=== PATIENT | male | born 1945 | race Caucasian/White ===

== ENCOUNTER → 2017-08-29 12:49 | Outpatient (CLI) | payer MEDICARE, SELFPAY ==
--- NOTE | 2017-08-30 10:58 | PFT ---
INTRODUCTION: The patient is a 71-year-old male currently under the care of Dr. Espinoza that presents for pulmonary function testing secondary to a diagnosis of COPD. Respiratory therapy reports good patient effort. Bronchodilators were used during testing. INTERPRETATION: Forced expiration spirometry demonstrates the presence of a mild large airways obstructive ventilatory defect. There was no significant response to aerosolized bronchodilators, based upon strict ATS criteria. Spirograms are of good quality and do not plateau indicating slow emptying of the lungs. Body plethysmography was performed and reveals a trend towards hyperinflation and air-trapping. Diffusing capacity by single breath CO is mildly reduced at 65% of predicted. When compared to previous pulmonary function studies dated July 2016, there has been a 20% improvement in the patient's DLCO. IMPRESSION: These pulmonary function studies demonstrate the presence of an irreversible mild large airways obstructive ventilatory defect with a trend towards hyperinflation and air-trapping and mild reduction in diffusing capacity.
--- NOTE | 2017-08-30 11:01 | PFT_ITS ---
INTRODUCTION: The patient is a 71-year-old male currently under the care of Dr. Espinoza that presents for pulmonary function testing secondary to a diagnosis of COPD. Respiratory therapy reports good patient effort. Bronchodilators were used during testing. INTERPRETATION: Forced expiration spirometry demonstrates the presence of a mild large airways obstructive ventilatory defect. There was no significant response to aerosolized bronchodilators, based upon strict ATS criteria. Spirograms are of good quality and do not plateau indicating slow emptying of the lungs. Body plethysmography was performed and reveals a trend towards hyperinflation and air -trapping. Diffusing capacity by single breath CO is mildly reduced at 65% of predicted. When compared to previous pulmonary function studies dated July 2016 , there has been a 20% improvement in the patient's DLCO. IMPRESSION: These pulmonary function studies demonstrate the presence of an irreversible mild large airways obstructive ventilatory defect with a trend towards hyperinflation and air-trapping and mild reduction in diffusing capacity.
== END ==
PROVIDERS: Family Provider Family Medicine; PCP Family Medicine; Visit Provider Internal Medicine Critical Care Medicine
DX: J44.9 Chronic obstructive pulmonary disease, unspecified (principal)
CPT/HCPCS: 94060; 94726; 94729

== ENCOUNTER → 2017-09-01 12:16 | Outpatient (CLI) | payer MEDICARE, SELFPAY ==
[2017-09-01 13:15] VITALS: PULSE 101; PULSE 62; PULSE 66; PULSE 85; PULSE 86; PULSE 88; PULSE 89; PULSE 96; O2SAT 87; O2SAT 90; O2SAT 93; O2SAT 94; O2SAT 96; O2SAT 97
--- NOTE | 2017-09-01 13:18 | CPS ---
After test I explained face to face encounter to patient. Patient refused face to face. Risks of not wearing oxygen with a low spO2 explained to patient. Patient still refused. Patient stated he has an appointment with Tracie at [facility] on and will discuss it further with her then and oxygen is not necessary at this time. Patient checked on room air while sitting, 96%, prior to leaving.
--- NOTE | 2017-09-02 09:36 | PCM.PSN.6M ---
PSN 6 Minute Walk Test - 6 Minute Walk Test 6 Minute Walk Test: 6 Minute Walk Test PSN:6-Minute Walk Test Start: 09/01/17 13:15 Freq: Status: Active Protocol: RESP.6MINW Document 09/01/17 13:15 SMB (Rec: 09/01/17 13:24 SMB [id number]) 6 Minute Walk Test Date Performed 09/01/17 Time Performed 12:22 Height 5 ft 7 in Weight: 170 lb Weight in Pounds 170.[address]: Tony Espinoza Assistive device used: None Pre-test Oxygen Delivery Method Room Air Pulse Ox (%) 96 Pulse Rate (60-100 beats/min) 62 1st minute Oxygen Delivery Method Room Air Pulse Ox (%) 90 Pulse Rate (60-100 beats/min) 101 H 2nd minute Oxygen Delivery Method Room Air Pulse Ox (%) 87 Pulse Rate (60-100 beats/min) 88 3rd minute Oxygen Flow Rate (L/min) (L/min) 2 Oxygen Delivery Method Nasal Cannula Pulse Ox (%) 94 Pulse Rate (60-100 beats/min) 66 4th minute Oxygen Flow Rate (L/min) (L/min) 2 Oxygen Delivery Method Nasal Cannula Pulse Ox (%) 93 Pulse Rate (60-100 beats/min) 86 5th minute Oxygen Flow Rate (L/min) (L/min) 2 Oxygen Delivery Method Nasal Cannula Pulse Ox (%) 94 Pulse Rate (60-100 beats/min) 85 6th minute Oxygen Flow Rate (L/min) (L/min) 2 Oxygen Delivery Method Nasal Cannula Pulse Ox (%) 93 Pulse Rate (60-100 beats/min) 89 Post-test Oxygen Flow Rate (L/min) (L/min) 2 Oxygen Delivery Method Nasal Cannula Pulse Ox (%) 97 Pulse Rate (60-100 beats/min) 96 Dyspnea Hernan Scale (0-10) 0 Exertion Hernan Scale (6-20) 12 Full Laps Walked 17 Partial Lap, Number of Tiles Walked 14 Total Distance Walked (ft) 1017 09/01/17 13:18 Cardiopulmonary Services by Rosemary Fink After test I explained face to face encounter to patient. Patient refused face to face. Risks of not wearing oxygen with a low spO2 explained to patient. Patient still refused. Patient stated he has an appointment with Tracie at [facility] on and will discuss it further with her then and oxygen is not necessary at this time. Patient checked on room air while sitting, 96%, prior to leaving. Initialized on 09/01/17 13:18 - END OF NOTE - Interpretation Interpretation: The patient ambulated 1017 feet over the course of 6 minutes beginning on room air without assistive devices or breaks. Pretesting oxygen saturation was noted to be 96% on room air. With ambulation, the meche oxygen saturation was 87% at minute 2 of testing. Following the application of 2 L/min supplemental oxygen by nasal cannula, the patient was able to complete the remainder of the test while maintaining oxygen saturations at or above 88%. This testing represents significant exertional oxygen desaturation. - Recommendations Recommendations: 2 L/min of supplemental oxygen should be utilized with exertion. Of note, the patient did refuse a [id number] encounter following the completion of testing and subsequently refused to be set up for supplemental oxygen.
--- NOTE | 2017-09-02 09:39 | WT_ITS ---
PSN 6 Minute Walk Test - 6 Minute Walk Test 6 Minute Walk Test: 6 Minute Walk Test PSN:6-Minute Walk Test Start: 09/01/17 13: 15 Freq: Status: Active Protocol: RESP.6MINW Document 09/01/17 13:15 SMB (Rec: 09/01/17 13:24 SMB [id number]) 6 Minute Walk Test Date Performed 09/01/17 Time Performed 12:22 Height 5 ft 7 in Weight: 170 lb Weight in Pounds 170.[address]: Tony Espinoza Assistive device used: None Pre-test Oxygen Delivery Method Room Air Pulse Ox (%) 96 Pulse Rate (60-100 beats/min) 62 1st minute Oxygen Delivery Method Room Air Pulse Ox (%) 90 Pulse Rate (60-100 beats/min) 101 H 2nd minute Oxygen Delivery Method Room Air Pulse Ox (%) 87 Pulse Rate (60-100 beats/min) 88 3rd minute Oxygen Flow Rate (L/min) (L/min) 2 Oxygen Delivery Method Nasal Cannula Pulse Ox (%) 94 Pulse Rate (60-100 beats/min) 66 4th minute Oxygen Flow Rate (L/min) (L/min) 2 Oxygen Delivery Method Nasal Cannula Pulse Ox (%) 93 Pulse Rate (60-100 beats/min) 86 5th minute Oxygen Flow Rate (L/min) (L/min) 2 Oxygen Delivery Method Nasal Cannula Pulse Ox (%) 94 Pulse Rate (60-100 beats/min) 85 6th minute Oxygen Flow Rate (L/min) (L/min) 2 Oxygen Delivery Method Nasal Cannula Pulse Ox (%) 93 Pulse Rate (60-100 beats/min) 89 Post-test Oxygen Flow Rate (L/min) (L/min) 2 Oxygen Delivery Method Nasal Cannula Pulse Ox (%) 97 Pulse Rate (60-100 beats/min) 96 Dyspnea Hernan Scale (0-10) 0 Exertion Hernan Scale (6-20) 12 Full Laps Walked 17 Partial Lap, Number of Tiles Walked 14 Total Distance Walked (ft) 1017 09/01/17 13:18 Cardiopulmonary Services by Rosemary Fink After test I explained face to face encounter to patient. Patient refused face to face. Risks of not wearing oxygen with a low spO2 explained to patient. Patient still refused. Patient stated he has an appointment with Tracie at [facility] on and will discuss it further with her then and oxygen is not necessary at this time. Patient checked on room air while sitting, 96%, prior to leaving. Initialized on 09/01/17 13:18 - END OF NOTE - Interpretation Interpretation: The patient ambulated 1017 feet over the course of 6 minutes beginning on room air without assistive devices or breaks. Pretesting oxygen saturation was noted to be 96% on room air. With ambulation, the meche oxygen saturation was 87% at minute 2 of testing. Following the application of 2 L/min supplemental oxygen by nasal cannula, the patient was able to complete the remainder of the test while maintaining oxygen saturations at or above 88%. This testing represents significant exertional oxygen desaturation. - Recommendations Recommendations: 2 L/min of supplemental oxygen should be utilized with exertion. Of note, the patient did refuse a [id number] encounter following the completion of testing and subsequently refused to be set up for supplemental oxygen.
== END ==
PROVIDERS: Family Provider Family Medicine; PCP Family Medicine; Visit Provider Internal Medicine Critical Care Medicine
DX: J44.9 Chronic obstructive pulmonary disease, unspecified (principal)
CPT/HCPCS: 94618

== ENCOUNTER → 2018-01-18 13:57 | Outpatient (CLI) | payer MEDICARE, SELFPAY ==
--- NOTE | 2018-01-18 14:07 | RAD_ITS ---
STUDY: X-RAY CHEST REASON FOR EXAM: Male, 72 years old. Pulmonary hypertension. TECHNIQUE: PA and lateral views of the chest. COMPARISON: CT of the chest, July 22, 2016. FINDINGS: The lungs are hyperexpanded. There is no focal mass or infiltrate. There is no demonstrated pleural abnormality. Normal size heart. Normal mediastinum and landy. Normal visualized pulmonary arteries. Normal visualized aortic arch and descending thoracic aorta. Normal visualized thoracic spine. Normal visualized ribs, clavicles, and shoulders. There is no demonstrated abnormality of the visualized soft tissue structures of the upper abdomen. RAD/Chest PA and Lateral IMPRESSION: Hyperexpanded lungs without focal mass or major interval change. Electronically Signed: Claudio Kraft DO at 23:25 EST Tel [phone], Service support ,
[2018-01-18 15:01] LABS: Anion Gap 3 (5-15); BUN 11 mg/dL (7-18); BUN/Creat Ratio 11.2 RATIO (10-20); Calcium,Total 8.6 mg/dL (8.5-10.1); Chloride 107 mmol/L (98-107); Creatinine, Serum 0.98 mg/dL (0.70-1.30); EST Glomerular Filtration Rate 80 mL/min (>60); Est Glom Filt Rate - Afr Amer 97 mL/min (>60); Glucose 58 mg/dL (74-106); Potassium 3.8 mmol/L (3.5-5.1); Sodium Level 142 mmol/L (136-145)
[2018-01-18 15:07] LABS: BNP,B-Type NATRIURETIC PEPTIDE 6.3 pg/mL (0-100)
== END ==
PROVIDERS: Family Provider Family Medicine; PCP Family Medicine; Referring Provider Nurse Practitioner Acute Care; Visit Provider Nurse Practitioner Acute Care
DX: R06.02 Shortness of breath (principal)
CPT/HCPCS: 36415; 71046; 80048; 83880

== ENCOUNTER → 2020-03-18 09:33 | Outpatient (CLI) | payer MEDICARE, SELFPAY ==
[2019-09-26 05:48] VITALS: BMI 27.9
--- NOTE | 2020-03-18 16:05 | PFTCOMP ---
COMPLETE PULMONARY FUNCTION TEST INTERPRETATION Brief HPI: Patient is a 74 year old male, currently under the care of myself, who presents to [facility] for complete pulmonary function tests secondary to diagnosis of COPD. Respiratory therapist reports good effort and reproducible results. Interpretation: Forced expiration spirometry shows a mild large airways obstructive ventilatory defect with an FEV1 of 83% predicted. There is no significant bronchodilator response by strict ATS criteria. Spirograms are of good quality and plateau slowly, indicating slowly emptying areas of the lungs. The respiratory flow volume loop shows decreased expiratory flow rates at all lung volumes consistent with airway obstruction. Lung volumes by body plethysmography show an elevated total lung capacity at 7.54 L, 121% predicted. All other lung volumes are increased symmetrically. Diffusion capacity by carbon monoxide is decreased at 55% predicted. The airway resistance is elevated. Compared to previous pulmonary function tests from 08/29/2017, there is been a reduction in DLCO by 16%. Impression: Irreversible mild large airways obstructive ventilatory defect resulting in air trapping, with a disproportionate reduction diffusion capacity and some progression compared to the previous study.
== END ==
PROVIDERS: PCP Family Medicine; Referring Provider Internal Medicine Critical Care Medicine; Visit Provider Internal Medicine Critical Care Medicine
DX: J44.9 Chronic obstructive pulmonary disease, unspecified (principal)
CPT/HCPCS: 94060; 94726; 94729

== ENCOUNTER → 2020-07-17 09:16 | Outpatient (CLI) | payer OTHER, SELFPAY ==
--- NOTE | 2020-07-17 09:27 | PR.HP_ITS ---
History of Present Illness Arrival date:: 07/17/20 Arrival time:: 09:20 Date of Referral:: 07/11/20 Date of Evaluation: 07/17/20 Referring Physician: [facility] Issa Dickey Primary Diagnosis: COPD GOLD Classification II, PULM HTN mMRC Breathless Scale: When is the patient short of breath? Y/N Grade: Description of Breathlessness: 0 I only get breathless with strenuous exercise. 1 I get short of breath when hurrying on level ground or walking up a slight hill. 2 On level ground, I walk slower than people of the same age because of breathless, or have to stop for breath when walking at my own pace. 3 I stop for breath after walking 100 yards or after a few minutes on level ground. 4 I am too breathless to leave the house or I am breathless when dressing. Respiratory Problems: Yes: Fatigue, Wheezing, Able to Speak in Full Sentences, Dyspnea with Activity, Cough with Secretions No: Limited Range of Motion, Dyspnea at Rest, Dyspnea Lying Down Flat - Secretions Cough:: Yes A.T.C.: Yes Hx of Sleep Apnea: Yes Do you snore loudly (louder than talking or can be heard through closed doors)?: Yes Do you often feel tired/ fatigued/ sleepy during daytime?: Yes Has anyone observed you stop breathing during sleep?: No History of Hypertension (for STOP score): Yes - Pt has previous history of KENY with CPAP. STOP Results: Positive Home Medications: Home Medications folic acid 1 mg tablet 1 mg PO QDAY 04/01/17 glucosamine sulfate-chondroitin sulfate A 500 mg-250 mg capsule cap PO 04/01/17 hydroxychloroquine 200 mg tablet 200 mg PO BID tab 04/01/17 cholecalciferol (vitamin D3) 50 mcg (2,000 unit) capsule 2,000 unit PO QDAY cap 10/11/17 adalimumab 10 mg/0.2 mL subcutaneous syringe kit See Rx Instructions SC .COMPLEX 03/24/20 albuterol sulfate 2 puff INHALATION Q6H PRN 07/17/20 tiotropium bromide [Spiriva Respimat] 2 puff INHALATION DAILY 07/17/20 valacyclovir 1,000 mg PO Q12H 07/17/20 Allergies/Adverse Reactions: Allergies No Known Allergies Allergy (Unverified 01/11/21 09:36) Medical Utilization Do you use a peak flow meter at home?: No Do you use a spacer device with your inhalers?: Yes Number of hospital visits in the last year?: 0 Do you see your physician on a regular schedule?: Yes How often?: 3 months and as needed Advanced Directives - Advanced Directives Power of Asset Protection Assistant: Yes Living Will: Yes Advance Directives Information Provided: No Advance Directives on File: No DNR Order?:: No - MOLST See MOLST form: No Past Medical History - Covid-19 Screening Fever: No - Patient has had the COVID-19 vaccine ([employer]) Unexplained muscle aches: No Current respiratory symptoms: Yes - Hx COPD Upper respiratory infections symptoms: Yes - Hx of COPD and exacerbations Gastro-intestinal symptoms: No Cni-Hlgy-Oricox symptoms: No Has tested positive for COVID-19 in last 30 days: No Had contact w/person w/symptoms or Covid-19 (+) last 14 days: No Has High Risk Exposures ID'd by Health dept/Inf Control team: No 65 years or older:: Yes Lives in Assisted Living facility:: No Has a chronic lung disease or moderate to severe asthma:: Yes Has a serious heart condition:: No Immunocompromised:: No Severely obese (Body Mass Index of 40 or higher):: No Diabetic:: No Has chronic kidney disease undergoing dialysis:: No Has liver disease:: Yes Medical History: Past Medical History (Last Updated 07/17/20 @ 09:39 by Evelio Tinsley, PSYCH NP, COAL TRIMMER MACHINE OPERATOR, BS) Elevated PSA R97.20 Height loss R29.890 Hypercholesteremia E78.00 On prednisone therapy Z79.52 KENY (obstructive sleep apnea) G47.33 Pulmonary HTN I27.20 RVSP 34 mmHg Respiratory failure with hypoxia J96.91 Rheumatoid arthritis M06.9 SOB (shortness of breath) R06.02 Stage 2 moderate COPD by GOLD classification J44.9 Surgical History: Past Surgical History (Last Reviewed 03/24/20 @ 09:49 by Tracie Puente DIRECTOR OF PRODUCT MANAGEMENT, DIRECTOR OF PRODUCT MANAGEMENT-C) History of hernia repair Z98.890, Z87.19 Family History: Family History (Last Reviewed 03/24/20 @ 09:49 by Tracie Puente DIRECTOR OF PRODUCT MANAGEMENT, DIRECTOR OF PRODUCT MANAGEMENT-C) Mother Cancer pancreas Sister Non-Hodgkin lymphoma Father Cancer - Current/ Previous Services Pulmonary Rehab:: No Social History - Smoking History Smoking Status: Former smoker Years Smokin Hx Tobacco Use: Yes Hx Smoking Exposure: No - Alcohol Use Alcohol Usage: No - Substance Abuse Hx Substance Use: No - Occupation Occupation (List type of work in comments):: Retired - Hobbies, Recreation, Social Activities Hobbies: Sports - fishing, wood carving, gardening, Reading Recreational Activities: I am able to engage in a few activities Functioning ADL/IADL - Current Ability Current Ability: Independent Self-Care (e.g.,grooming, dressing, & bathing), Independent Ambulation, Independent Transfer, Independent Household tasks (e.g., light meal prep, laundry, shopping) - Pt Functioning Prior to Problem Prior Functioning: Self-Care (e.g.,grooming, dressing, & bathing): Independent, Ambulation: Independent, Transfer: Independent, Household tasks (e.g., light meal prep, laundry, shopping): Independent Social Environment - Status Marital Status: - Current Living Arrangements Living Environment:: Spouse - Children How many children do you have?: 2 - daughters Do any of your children live nearby?: Yes - Local to the area - Safety Do you feel safe in your surroundings?: Yes - Assistance Do you need any assistance at home?: no Review of Systems Review of Systems: Right click = Denies (Slash). Left click = Reports ([place]) Respiratory: Reports: SOB upon Exertion, Wheezing, Appetite, Normal, Fatigue, PVD, Sleep, Normal. Denies: Cough, SOB at Rest, Sputum production, Dizziness/Lightheadedness Is Patient Pain Free?: Yes Pain Location: none Pain Level: 0/10 Risk Factor Assessment - Chief Complaint Chief Complaint: Patient is a 74 M of the [facility] who presents to OR today for his COPD. The patient nyla had seen Dr[facility] Tony [facility] - Vital Signs Temperature: 97.4 F Pulse Rate: 65 Pulse Rhythm: Regular Respiratory Rate: 18 Pulse Ox: 94 - on 3 liters oxygen Blood Pressure: 132/74 - Obesity Height: 5 ft 7 in Weight:: 177 lb 9.6 oz Weight in Pounds: 177.6 lbs Weight Source: Standing Scale Body Mass Index (BMI): 27.8 Nutritional Referral for Obesity: No - Physical Activity Physical Inactivity: None - Risk Stratification Risk Guidelines: Lowest Risk: Risk Factor for Smoking, Risk Factor for Dyslipidemia, Risk Factor for Diabetes, Risk Factor for Obesity, Risk Factor for Hypertension, Risk Factor for Depression, Highest Risk: Risk Factor for Sedentary Lifestyle Motivation - Motivation to Participate On a scale of 1 to 10, how prepared are you to commit to attending program?: 7 What do you see as barriers to successfully being able to complete the program?: none What do you see as the benefits of succesfully completing the program? In other words, what do you hope to get out of participating in the program?: getting stronger, breathe better, improve function Are there issues you are dealing with that will interfere with completing the program?: none Do you have a spouse or signficant other, family or friends who will help support you to complete the program?: Yes Diagnostic Data Review - Pulmonary Function Test FEV1:: 2.66 FVC:: 3.46 FEV1/FVC%:: 77 Gold Classification: GOLD class II(mod. COPD)with FEV1/FVC <70%, 50%</= FEV1< 50% predicted
[2020-07-17 09:46] VITALS: BP 132/74; PULSE 65; RESP 18; TEMP 36.3; O2SAT 94; BMI 27.8
--- NOTE | 2020-07-17 09:46 | PCM.PR.TP ---
General Information - General Information Admitting Diagnosis: COPD, PULM HTN Gold Classification:: GOLD 2: Moderate Oxygen: 3 liters home use/portable - Education/Goals Barriers to Learning: Hearing Impairment Individual Counseling: Initial Assessment: Dyspnea control techniques at rest, activity, and ADLs, Inhaled and respiratory medications, Exacerbation prevention & management, O2, Rx, system, safety, ADL management and pacing, Home exercise plan & guidelines Patient Goals: Breathe better: Initial Assessment, Increase endurance/stamina: Initial Assessment, Control panic/anxiety: Initial Assessment, Improve diet and nutrition: Initial Assessment, Symptom management: Initial Assessment Exercise - Initial Assessment - Visit Date of Eval: 07/17/20 - Problem/Goals Problems: Deconditioning, No regular exercise, Knowledge deficit exercise guidelines, Knowledge deficit exercise safety Goals:: [place]: 2-3/wk - Physician Prescribed Exercise Modalities: Treadmill, Airdyne, NuStep, SciFit Frequency (days/week): 3 Duration (Minutes):: 30-45 Intensity: 60-80% of age predicted maximum heart rate reserve METs - Progression: 0.5-1.0 MET, RPE 11-14 WEEK: 2.5 Target Heart Rate:: 96-125 - Plan Plan and Plan to Review:: Benefits of exercise, Core components of exercise, How to measure dyspnea level, How to monitor dyspnea level, Exercise intensity, Exercise safety guideline, Home exercise guidelines, Hernan: 3-4/-13 Disease Management - Initial - Problems/Goals-Hypoxemia Hypoxemia Problems:: Hypoxemia Hypoxemia Goals:: Hypoxemia managed, Port system, Using O2 as Rx's safely - Problems/Goals-Bronchial Hygiene Bronchial Hygiene Problems:: Respiratory infection Prevention/Management Bronchial Hygiene Goals:: Pt describes signs and symptoms of infection. - Initial Assessment SpO2:: 94 Port O2:: 3 liters Does pt report taking home meds as prescribed?: Yes Medications: Yes MDI, Yes DPI, Yes NEB, Yes Spacer Patient Reports:: Prod cough with infection, Rare respiratory infections - Plans Hypoxemia Plan:: Monitor SpO2 rest & with exercise, Train appropriate O2 use with exercise, Train O2 safety & systems Bronchial Hygiene Plan: Controlled cough, Vibratory PEP device, Role of exercise in secretion clearance, Hydration, Hand hygiene, Signs/symptoms to report:, Influenza/Pneumovax vaccines, Cleaning of respiratory equipment Psychosocial - Initial Assess - Problems/Goals Problems: Impaired Q.O.L. Psychosocial Goals: Improved Q.O.L. - Psychosocial Test Depression:: Anxiety, Impaired QOL Referred to MD for counseling:: No - Plan Reviewed screening results: Yes Tobacco - Initial Assessment - Stage of Change Stages of Change:: Action - Learning Barriers Learning Barriers: Hearing, Ready to Learn - Family Support Do you have family support?: Yes - Tobacco Use Tobacco Use: Non-smoker Tobacco - 30-Day Assessment Tobacco - 60-Day Assessment Tobacco - 90-Day Assessment Tobacco - Final Assessment Nutrition/Wt Mgmt - Initial - Problems/Goals Goals: BMI 21-25, Wt Loss 1-2 lbs per week - Weight Management Knowledge Deficit Management of:: Overweight Admit Height:: 5 ft 7 in Admit Weight:: 177 lb Admit BMI:: 27.7 - Diabetes Diabetes:: No - Intervention Referral to dietitian:: Yes - Medical Nutrition Therapy Referral to Diabetic Clinic:: No Will attend diet classes:: Yes - Plan Nutrition Plan: Yes Nutrition education class:, Yes Medication education class [Prednisone]: Patient Health Questionnaire Initial Assessment 1. Little interest or pleasure in doing things: Several days 2. Feeling down, depressed, or hopeless: Several days 3. Trouble falling or staying asleep, or sleeping too much: More than half the days 4. Feeling tired or having little energy: More than half the days 5. Poor appetite or overeating: Several days 6. Feeling bad about yourself -- or that you are a failure or have let yourself or your family down: Several days 7. Trouble concentrating on things, such as reading the newspaper or watching television: Not at all 8. Moving or speaking so slowly that other people could have noticed. Or the opposite - being so fidgety or restless that you have been moving around a lot more than usual: Not at all 9. Thoughts that you would be better off , or of hurting yourself in some way: Not at all How difficult have these problems made it for you to do your work, take care of things at home, or get along with other people?: Not difficult at all Total Score: 8 COPD Knowledge Test Initial COPD is a lung disease that:: Makes it hard to breathe & gets worse over time In the [place] the term COPD describes 2 main lung conditions:: Emphysema & chronic bronchitis The most common lung irritant that causes COPD is:: Cigarette smoke Common signs and symptoms of COPD include:: An ongoing cough/cough that produces a large amount of mucus, & SOB If you have COPD, what steps can you take?: All of the above Swelling of the ankles is common in COPD:: False Fatigue [tiredness] is common in COPD:: True Wheezing is common in COPD:: False Breathlessness is a normal response to exercise: True Exercise should be avoided if it makes you short of breath: True All bronchodilators act within 10 minutes: True A spacer device increases the medication to the lungs: True Annual flu vaccine is recommended for pts w/lung disease: True COPD Assessment Test [CAT] - Questions Never cough = 0, Cough all the time = 5: 2 No phlegm = 0, Chest full of phlegm = 5: 0 No chest tightness = 0, Chest very tight = 5: 0 No breathless w/exertion = 0, Very breathless w/exertion = 5: 1 No limitations w/activity = 0, Very limited w/activity = 5: 1 Confident leaving home = 0, Not at all confident = 5: 1 Sleep soundly = 0, Don't sleep soundly = 5: 3 Lots of energy = 0, No energy at all = 5: 2 Total CAT score:: 10 Self-Efficacy Initial Assessment We would like to know how confident you are in doing certain activities. Please select your confidence level for:: Select your confidence level for the following using the scale 1-10 where 1 is not at all confident and 10 is totally confident. Your score is the average of all 6 responses. Fatigue: How confident are you that you can keep the fatigue caused by your disease from interfering with the things you want to do? Select Number: 4 Physical Discomfort or Pain: How confident are you that you can keep the physical discomfort or pain of your disease from interfering with the things you want to do? Select Number: 7 Emotional Distress: How confident are you that you can keep the emotional distress caused by your disease from interfering with the things you want to do? Select Number: 7 Other Symptoms or Health Problems: How confident are you that you can keep other symptoms or health problems from interfering with the things you want to do? Select Number: 4 Different Tasks and Activities: How confident are you that you can do the different tasks and activities needed to manage your health condition so as to reduce your need to see a doctor? Select Number: 7 Medication: How confident are you that you can do things other than just taking medication to reduce how much your illness affects your everyday life? Select Number: 8 Total Score:: 6 Nutrition Survey - Nutrition Survey Initial Have you lost >10 lbs over the past 2 months without trying?: No Are you following a special diet at home for diabetes, low fat, or low salt?: Yes Are you interested in meeting with a dietitian for help understanding your diet?: No Do you eat less than 3 meals a day?: No Do you eat fatty meats (bravo, sausage, ribs, etc), fried foods, desserts, large amounts of salad dressings, margarine, butter, or cheese most days?: No Do you have food allergies? [Enter types in comment field]: No Do you eat in restaurants more than 3 times a week?: No Do you season food with salt, seasoning salt, or garlic salt?: Yes Do you used canned, boxed, frozen meals, or soups, seasoning packets?: Yes Total Score:: 3
[2020-07-17 09:54] VITALS: O2SAT 94; BMI 27.7
== END ==
PROVIDERS: PCP Family Medicine
DX: R06.00 Dyspnea, unspecified (principal)

== ENCOUNTER 2020-08-08 09:15 | Outpatient (RCR) | payer OTHER, SELFPAY ==
[2020-07-17 09:54] VITALS: BMI 27.7
== END 2020-08-11 23:59 ==
LOC: PR 09:15
PROVIDERS: PCP Family Medicine
DX: R06.00 Dyspnea, unspecified (principal)
CPT/HCPCS: 97150; G0424

== ENCOUNTER 2020-09-08 09:15 | Outpatient (RCR) | payer OTHER, SELFPAY ==
[2020-07-17 09:54] VITALS: BMI 27.7
--- NOTE | 2020-08-15 11:22 | PCM.CR.ITP ---
Diagnosis Nutrition - Initial Assessment Nutrition - 30-Day Assessment Nutrition - 60-Day Assessment Nutrition - 90-Day Assessment Nutrition - Final Assessment Medical - Initial Assessment Medical- 30-Day Assessment Medical- 60-Day Assessment Medical- 90-Day Assessment Medical - Final Assessment Psychosocial - Initial Assess Psychosocial - 30-Day Assess Psychosocial - 60-Day Assess Psychosocial - 90-Day Assess Psychosocial - Final Assessmen Nutrition Survey
--- NOTE | 2020-08-15 11:32 | PCM.PR.TP ---
Exercise - 30-Day Assessment - Physician Prescribed Exercise Modalities: Treadmill, Airdyne, NuStep Frequency (days/week): 3 Duration (Minutes):: 30-45 Intensity: 60-80% of age predicted maximum heart rate reserve Aerobic Exercise [30-60 min 3-7x/week]:: Progressing Target heart rate: 96-125 Hernan-13 - Home Exercise Home Exercise:: Yes Disease Management - 30-Day - Hypoxemia Reassessment: Demonstrates knowledge of O2 Rx at rest, Demonstrates knowledge of O2 Rx with exercise, Using O2 as prescribed, Has home O2 as prescribed, Uses port O2 as prescribed - Medications Medication list reviewed:: Yes Taking medications 100% of the time:: Met Medication reassessment: Yes Pt demonstrates correct technique timing for MDI, Yes Pt demonstrates correct technique timing for DPI, Yes Pt demonstrates correct technique timing for NEB, Yes Pt demonstrates correct technique timing for spacer - Bronchial Hygiene Bronchial Hygiene Plan: Yes Pt demonstrates correctly for effective cough, Yes Pt demo correct for device, Yes Pt demo correct for improved hydration, Yes Pt demo correct for hand hygiene, Yes Pt demo correct for verbalize when to call MD Psychosocial - 30-Day - Assessment Reassessment: Management of stress & depression, Practicing interventions, Demonstrate coping strategies, COPD assessment w/ CAT, Geriatric depression screening, Self efficacy score Tobacco - Initial Assessment Tobacco - 30-Day Assessment - Stage of Change Stages of Change:: Action - Learning Barriers Learning Barriers: Participates in education - Family Support Do you have family support?: Yes - Tobacco Use Tobacco Use: Non-smoker - Education Gave Education Materials For:: Pulmonary Disease, Risk Factors, Breathing Techniques, Medical Compliance, Pulmonary A&P, Exacerbation Signs & Symptoms, Stress & Relaxation Tobacco - 60-Day Assessment Tobacco - 90-Day Assessment Tobacco - Final Assessment Nutrition/Wt Mgmt - 30-Day - Weight Management Weight:: 182 lb - BMI 28 Weight Goals Progress:: Progressing Patient Health Questionnaire 30-Day Re-eval Assessment 1. Little interest or pleasure in doing things: Not at all 2. Feeling down, depressed, or hopeless: Several days 3. Trouble falling or staying asleep, or sleeping too much: More than half the days 4. Feeling tired or having little energy: More than half the days 5. Poor appetite or overeating: Several days 6. Feeling bad about yourself -- or that you are a failure or have let yourself or your family down: Not at all 7. Trouble concentrating on things, such as reading the newspaper or watching television: Not at all 8. Moving or speaking so slowly that other people could have noticed. Or the opposite - being so fidgety or restless that you have been moving around a lot more than usual: Not at all How difficult have these problems made it for you to do your work, take care of things at home, or get along with other people?: Not difficult at all Total Score: 6 Self-Efficacy 30-Day Re-eval Assessment We would like to know how confident you are in doing certain activities. Please select your confidence level for:: Select your confidence level for the following using the scale 1-10 where 1 is not at all confident and 10 is totally confident. Your score is the average of all 6 responses. Fatigue: How confident are you that you can keep the fatigue caused by your disease from interfering with the things you want to do? Select Number: 5 Physical Discomfort or Pain: How confident are you that you can keep the physical discomfort or pain of your disease from interfering with the things you want to do? Select Number: 8 Emotional Distress: How confident are you that you can keep the emotional distress caused by your disease from interfering with the things you want to do? Select Number: 8 Other Symptoms or Health Problems: How confident are you that you can keep other symptoms or health problems from interfering with the things you want to do? Select Number: 7 Different Tasks and Activities: How confident are you that you can do the different tasks and activities needed to manage your health condition so as to reduce your need to see a doctor? Select Number: 8 Medication: How confident are you that you can do things other than just taking medication to reduce how much your illness affects your everyday life? Select Number: 9 Total Score:: 7 Nutrition Survey
== END 2020-09-10 23:59 ==
LOC: PR 09:15
PROVIDERS: PCP Family Medicine
DX: R06.00 Dyspnea, unspecified (principal)
CPT/HCPCS: 97150; G0424

== ENCOUNTER 2020-10-10 09:30 | Outpatient (RCR) | payer OTHER, SELFPAY ==
[2020-07-17 09:54] VITALS: BMI 27.7
--- NOTE | 2020-09-12 10:38 | PCM.CR.ITP ---
Diagnosis Exercise - 60-day Assessment - Visit Date of Eval: 09/12/20 Session #:: 15 Nutrition - Initial Assessment Nutrition - 30-Day Assessment Nutrition - 60-Day Assessment Nutrition - 90-Day Assessment Nutrition - Final Assessment Medical - Initial Assessment Medical- 30-Day Assessment Medical- 60-Day Assessment Medical- 90-Day Assessment Medical - Final Assessment Psychosocial - Initial Assess Psychosocial - 30-Day Assess Psychosocial - 60-Day Assess Psychosocial - 90-Day Assess Psychosocial - Final Assessmen Nutrition Survey
--- NOTE | 2020-09-12 10:43 | PR.ITP_ITS ---
Exercise - 60-Day Assessment - Physician Prescribed Exercise Modalities: Treadmill, Airdyne, NuStep Frequency (days/week): 2 - Tuesday & Tuesday Intensity: 60-80% of age predicted maximum heart rate reserve Aerobic Exercise [30-60 min 3-7x/week]:: Progressing Target heart rate: 96-125 Hernan METs - Progression: 0.5-1.0 MET, RPE 11-14 WEEK: 4.0 - progressing - Home Exercise Home Exercise:: No Disease Management - 60-Day - Hypoxemia Reassessment: Demonstrates knowledge of O2 Rx at rest, Demonstrates knowledge of O2 Rx with exercise, Using O2 as prescribed, Has home O2 as prescribed, Uses port O2 as prescribed - Medications Medication list reviewed:: Yes Taking medications 100% of the time:: Met Medication reassessment: Yes Pt demonstrates correct technique timing for MDI, Yes Pt demonstrates correct technique timing for DPI, Yes Pt demonstrates correct technique timing for NEB, Yes Pt demonstrates correct technique timing for spacer - Bronchial Hygiene Bronchial Hygiene Plan: Yes Pt demonstrates correctly for effective cough, Yes Pt demo correct for device, Yes Pt demo correct for hand hygiene, Yes Pt demo correct for verbalize when to call MD Psychosocial - 60-Day - Assessment Depression reassess: Management of stress: Progressing, Management of depress ion: Progressing, Practicing interventions: Progressing Tobacco - Initial Assessment Tobacco - 30-Day Assessment Tobacco - 60-Day Assessment - Stage of Change Stages of Change:: Action - Learning Barriers Learning Barriers: Participates in education - Family Support Do you have family support?: Yes - Tobacco Use Tobacco Use: Non-smoker - Intervention Smoking Cessation Referral:: No Individual Education/Counseling:: No Education Schedule Given:: Yes - Education Gave Education Materials For:: Pulmonary Disease, Risk Factors, Medical Compliance, Pulmonary A&P, Exacerbation Signs & Symptoms Tobacco - 90-Day Assessment Tobacco - Final Assessment Nutrition/Wt Mgmt - 60-Day - Weight Management Weight:: 182 lb Weight Goals Progress:: Progressing Patient Health Questionnaire 60-Day Re-eval Assessment 1. Little interest or pleasure in doing things: Not at all 2. Feeling down, depressed, or hopeless: Several days 3. Trouble falling or staying asleep, or sleeping too much: More than half the days 4. Feeling tired or having little energy: More than half the days 5. Poor appetite or overeating: Several days 6. Feeling bad about yourself -- or that you are a failure or have let yourself or your family down: Several days 7. Trouble concentrating on things, such as reading the newspaper or watching television: Not at all 8. Moving or speaking so slowly that other people could have noticed. Or the opposite - being so fidgety or restless that you have been moving around a lot more than usual: Not at all 9. Thoughts that you would be better off , or of hurting yourself in some way: Not at all How difficult have these problems made it for you to do your work, take care of things at home, or get along with other people?: Somewhat difficult Total Score: 7 Self-Efficacy 60-Day Re-eval Assessment We would like to know how confident you are in doing certain activities. Please select your confidence level for:: Select your confidence level for the following using the scale 1-10 where 1 is not at all confident and 10 is totally confident. Your score is the average of all 6 responses. Fatigue: How confident are you that you can keep the fatigue caused by your disease from interfering with the things you want to do? Select Number: 8 Physical Discomfort or Pain: How confident are you that you can keep the physical discomfort or pain of your disease from interfering with the things you want to do? Select Number: 8 Emotional Distress: How confident are you that you can keep the emotional distress caused by your disease from interfering with the things you want to do? Select Number: 8 Other Symptoms or Health Problems: How confident are you that you can keep other symptoms or health problems from interfering with the things you want to do? Select Number: 8 Different Tasks and Activities: How confident are you that you can do the different tasks and activities needed to manage your health condition so as to reduce your need to see a doctor? Select Number: 8 Medication: How confident are you that you can do things other than just taking medication to reduce how much your illness affects your everyday life? Select Number: 8 Total Score:: 8 Nutrition Survey
== END 2020-10-11 23:59 ==
LOC: PR 09:30
PROVIDERS: PCP Family Medicine
DX: R06.00 Dyspnea, unspecified (principal)
CPT/HCPCS: 97150; G0424

== ENCOUNTER 2020-11-10 09:30 | Outpatient (RCR) | payer OTHER, SELFPAY ==
[2020-07-17 09:54] VITALS: BMI 27.7
--- NOTE | 2020-10-14 10:47 | PCM.PR.TP ---
Exercise - 90-Day Assessment - Physician Prescribed Exercise Modalities: Treadmill, Airdyne, NuStep Frequency (days/week): 3 Duration (minutes): 30-45 Aerobic Exercise [30-60 min 3-7x/week]:: Met Target heart rate: 96-125 Hernan-13 METs - Progression: 0.5-1.0 MET, RPE 11-14 WEEK: 4.0 - Home Exercise Home Exercise?: Yes Frequency:: DAILY Time (minutes):: 60 - > I HOUR Disease Management - 90-Day - Hypoxemia Reassessment: Demonstrates knowledge of O2 Rx at rest, Demonstrates knowledge of O2 Rx with exercise, Using O2 as prescribed, Has home O2 as prescribed, Uses port O2 as prescribed - Medications Medication list reviewed:: Yes Taking medications 100% of the time:: Met Medication reassessment: Yes Pt demonstrates correct technique timing for MDI, Yes Pt demonstrates correct technique timing for DPI, Yes Pt demonstrates correct technique timing for NEB, Yes Pt demonstrates correct technique timing for spacer - Bronchial Hygiene Bronchial Hygiene Plan: Yes Pt demonstrates correctly for effective cough, Yes Pt demo correct for device, Yes Pt demo correct for improved hydration, Yes Pt demo correct for hand hygiene, Yes Pt demo correct for verbalize when to call MD Psychosocial - 90-Day - Assessment Depression reassess: Management of stress: Met, Management of depression: Met, Practicing interventions: Met Tobacco - Initial Assessment Tobacco - 30-Day Assessment Tobacco - 60-Day Assessment Tobacco - 90-Day Assessment - Stage of Change Stages of Change:: Action - Learning Barriers Learning Barriers: Participates in education - Family Support Do you have family support?: Yes - Tobacco Use Tobacco Use: Non-smoker Do you use smokeless tobacco?: No - Intervention Smoking Cessation Referral:: No Individual Education/Counseling:: No Education Schedule Given:: Yes - Education Gave Education Materials For:: Pulmonary Disease, Risk Factors, Breathing Techniques, Medical Compliance, Pulmonary A&P, Exacerbation Signs & Symptoms, Stress & Relaxation Tobacco - Final Assessment Nutrition/Wt Mgmt - 90-Day - Weight Management Weight Assessment:: BMI 21 to 25 Weight:: 182 lb - BMI 28 Weight Goals Progress:: Goal met Patient Health Questionnaire 90-Day Re-eval Assessment 1. Little interest or pleasure in doing things: Not at all 2. Feeling down, depressed, or hopeless: Not at all 3. Trouble falling or staying asleep, or sleeping too much: Not at all 4. Feeling tired or having little energy: Not at all 5. Poor appetite or overeating: Not at all 6. Feeling bad about yourself -- or that you are a failure or have let yourself or your family down: Not at all 7. Trouble concentrating on things, such as reading the newspaper or watching television: Not at all 8. Moving or speaking so slowly that other people could have noticed. Or the opposite - being so fidgety or restless that you have been moving around a lot more than usual: Not at all How difficult have these problems made it for you to do your work, take care of things at home, or get along with other people?: Not difficult at all Total Score: 0 Self-Efficacy 90-Day Re-eval Assessment We would like to know how confident you are in doing certain activities. Please select your confidence level for:: Select your confidence level for the following using the scale 1-10 where 1 is not at all confident and 10 is totally confident. Your score is the average of all 6 responses. Fatigue: How confident are you that you can keep the fatigue caused by your disease from interfering with the things you want to do? Select Number: 10 Physical Discomfort or Pain: How confident are you that you can keep the physical discomfort or pain of your disease from interfering with the things you want to do? Select Number: 10 Emotional Distress: How confident are you that you can keep the emotional distress caused by your disease from interfering with the things you want to do? Select Number: 10 Other Symptoms or Health Problems: How confident are you that you can keep other symptoms or health problems from interfering with the things you want to do? Select Number: 10 Different Tasks and Activities: How confident are you that you can do the different tasks and activities needed to manage your health condition so as to reduce your need to see a doctor? Select Number: 10 Medication: How confident are you that you can do things other than just taking medication to reduce how much your illness affects your everyday life? Select Number: 10 Total Score:: 10 Nutrition Survey
== END 2020-11-11 23:59 ==
LOC: PR 09:30
PROVIDERS: PCP Family Medicine
DX: R06.00 Dyspnea, unspecified (principal)
CPT/HCPCS: 97150; G0424

== ENCOUNTER 2020-11-19 09:30 | Outpatient (RCR) | payer OTHER, SELFPAY ==
[2020-11-12 00:34] VITALS: BMI 27.7
--- NOTE | 2020-11-18 06:44 | PCM.PR.TP ---
Exercise - Final Assessment - Physician Prescribed Exercise Modalities: Treadmill, Airdyne, NuStep Frequency (days/week): 3 Duration (Minutes):: 30-45 Aerobic Exercise [30-60 min 3-7x/week]:: Met Further followup [see D/C Summary]:: No Target heart rate: 96-125 Hernan-13 METs - Progression: 0.5-1.0 MET, RPE 11-14 WEEK: 4.0 - Home Exercise Home Exercise:: Yes Mode: Treadmill Frequency: 2-3 days Time (minutes):: 30 Disease Management - Final - Hypoxemia Final Assessment: Demonstrates knowledge of O2 Rx at rest, Demonstrates knowledge of O2 Rx with exercise, Using O2 as prescribed, Has home O2 as prescribed, Uses port O2 as prescribed - Medications Medication list reviewed:: Yes Taking medications 100% of the time:: Met Medication reassessment: Yes Pt demonstrates correct technique timing for MDI, Yes Pt demonstrates correct technique timing for DPI, Yes Pt demonstrates correct technique timing for NEB, Yes Pt demonstrates correct technique timing for spacer - Bronchial Hygiene Bronchial Hygiene Plan: Yes Pt demonstrates correctly for effective cough, Yes Pt demo correct for device - Return demonstration in use of Acapella device, Yes Pt demo correct for improved hydration - 6-8 glasses of water daily, Yes Pt demo correct for hand hygiene, Yes Pt demo correct for verbalize when to call MD - Can verbalize S& S Psychosocial - Final Assess - Assessment Depression reassess: Management of stress: Met - Increase in socialization, Management of depression: Met - Much better outlook, Practicing interventions: Met Tobacco - Initial Assessment Tobacco - 30-Day Assessment Tobacco - 60-Day Assessment Tobacco - 90-Day Assessment Tobacco - Final Assessment - Learning Barriers Learning Barriers: Participates in education - Work book and online access to Educational materials. - Family Support Do you have family support?: Yes - Tobacco Use Tobacco Use: Non-smoker Nutrition/Wt Mgmt - Final - Weight Management Weight:: 182 lb - BMI 28 Weight Goals Progress:: Progressing Patient Health Questionnaire Discharge Assessment 1. Little interest or pleasure in doing things: Not at all 2. Feeling down, depressed, or hopeless: Not at all 3. Trouble falling or staying asleep, or sleeping too much: Several days 4. Feeling tired or having little energy: Not at all 5. Poor appetite or overeating: Not at all 6. Feeling bad about yourself -- or that you are a failure or have let yourself or your family down: Not at all 7. Trouble concentrating on things, such as reading the newspaper or watching television: Not at all 8. Moving or speaking so slowly that other people could have noticed. Or the opposite - being so fidgety or restless that you have been moving around a lot more than usual: Not at all How difficult have these problems made it for you to do your work, take care of things at home, or get along with other people?: Not difficult at all Total Score: 1 COPD Knowledge Test Discharge COPD is a lung disease that:: Makes it hard to breathe & gets worse over time In the [place] the term COPD describes 2 main lung conditions:: Emphysema & chronic bronchitis The most common lung irritant that causes COPD is:: Cigarette smoke Common signs and symptoms of COPD include:: An ongoing cough/cough that produces a large amount of mucus, & SOB If you have COPD, what steps can you take?: All of the above Swelling of the ankles is common in COPD:: False Fatigue [tiredness] is common in COPD:: True Wheezing is common in COPD:: True Crushing chest pain is common in COPD:: False Rapid weight loss is common in COPD:: False Breathlessness is a normal response to exercise: True Exercise should be avoided if it makes you short of breath: False All bronchodilators act within 10 minutes: False A spacer device increases the medication to the lungs: True Annual flu vaccine is recommended for pts w/lung disease: True COPD Knowledge Test Total Score:: 15 COPD Assessment Test [CAT] - Questions Never cough = 0, Cough all the time = 5: 2 No phlegm = 0, Chest full of phlegm = 5: 1 No chest tightness = 0, Chest very tight = 5: 1 No breathless w/exertion = 0, Very breathless w/exertion = 5: 2 No limitations w/activity = 0, Very limited w/activity = 5: 2 Confident leaving home = 0, Not at all confident = 5: 1 Sleep soundly = 0, Don't sleep soundly = 5: 2 Lots of energy = 0, No energy at all = 5: 1 Total CAT score:: 12 Self-Efficacy Discharge Assessment We would like to know how confident you are in doing certain activities. Please select your confidence level for:: Select your confidence level for the following using the scale 1-10 where 1 is not at all confident and 10 is totally confident. Your score is the average of all 6 responses. Fatigue: How confident are you that you can keep the fatigue caused by your disease from interfering with the things you want to do? Select Number: 10 Physical Discomfort or Pain: How confident are you that you can keep the physical discomfort or pain of your disease from interfering with the things you want to do? Select Number: 10 Emotional Distress: How confident are you that you can keep the emotional distress caused by your disease from interfering with the things you want to do? Select Number: 10 Other Symptoms or Health Problems: How confident are you that you can keep other symptoms or health problems from interfering with the things you want to do? Select Number: 10 Different Tasks and Activities: How confident are you that you can do the different tasks and activities needed to manage your health condition so as to reduce your need to see a doctor? Select Number: 10 Medication: How confident are you that you can do things other than just taking medication to reduce how much your illness affects your everyday life? Select Number: 10 Total Score:: 10 Nutrition Survey - Nutrition Survey Discharge Have you lost >10 lbs over the past 2 months without trying?: No Are you following a special diet at home for diabetes, low fat, or low salt?: Yes - lowering fat and sodium intake, reducing portions. Eating smaller meals more frequently Are you interested in meeting with a dietitian for help understanding your diet?: No Do you eat less than 3 meals a day?: No Do you eat fatty meats (bravo, sausage, ribs, etc), fried foods, desserts, large amounts of salad dressings, margarine, butter, or cheese most days?: Yes - on occasions 1-2 time per week Do you have food allergies? [Enter types in comment field]: No Do you eat in restaurants more than 3 times a week?: No Do you season food with salt, seasoning salt, or garlic salt?: No Do you used canned, boxed, frozen meals, or soups, seasoning packets?: No - garden fresh, farmers markets and maddy Total Score:: 2
== END 2020-12-11 23:59 ==
LOC: PR 09:30
PROVIDERS: PCP Family Medicine
DX: J44.9 Chronic obstructive pulmonary disease, unspecified (principal)
CPT/HCPCS: 97150; G0424

== ENCOUNTER 2021-02-20 09:01 | Day surgery (SDC) | payer OTHER, SELFPAY ==
[2021-02-20 09:26] VITALS: BP 142/88; PULSE 69; RESP 18; TEMP 36.3; O2SAT 97; BMI 28.1
[2021-02-20] MEDS: Lactated Ringers 1,000 ML 15 ML IV (09:48)
--- NOTE | 2021-02-20 10:00 | PCM.HP.BLA ---
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 Boarding Room Required: No Is patient in pain?: No Allergies No Known Allergies Allergy (Verified 02/04/21 08:17) Medications folic acid 1 mg tablet 1 mg PO QDAY 04/01/17 [History Confirmed 02/04/21] glucosamine sulfate-chondroitin sulfate A 500 mg-250 mg capsule cap PO 04/01/17 [History Confirmed 02/04/21] hydroxychloroquine 200 mg tablet 200 mg PO BID tab 04/01/17 [History Confirmed 02/04/21] cholecalciferol (vitamin D3) 50 mcg (2,000 unit) capsule 2,000 unit PO QDAY cap 10/11/17 [History Confirmed 02/04/21] adalimumab 10 mg/0.2 mL subcutaneous syringe kit See Rx Instructions SC .COMPLEX 03/24/20 [History Confirmed 02/04/21] albuterol sulfate 2 puff INHALATION Q6H PRN 07/17/20 [History Confirmed 02/04/21] tiotropium bromide [Spiriva Respimat] 2 puff INHALATION DAILY 07/17/20 [History Confirmed 02/04/21] valacyclovir 1,000 mg PO Q12H 07/17/20 [History Confirmed 02/04/21] PFSH Medical History (Updated 02/04/21 @ 08:[address] Clint Benson MD) Elevated PSA Height loss Hypercholesteremia On prednisone therapy KENY (obstructive sleep apnea) Pulmonary HTN Respiratory failure with hypoxia Rheumatoid arthritis SOB (shortness of breath) Stage 2 moderate COPD by GOLD classification Surgical History (Updated 02/04/21 @ 08:14 by Brittney Brown) History of colonoscopy (~2007) History of hernia repair Family History Mother Cancer pancreas Sister Non-Hodgkin lymphoma Father Cancer Social History Smoking Status: Former smoker Tobacco: How many years used: 40 how long ago did patient quit smokin, 2pk/day second hand exposure: Yes alcohol intake: current substance use type: does not use HPI HPI HPI: PRAVIN DANIELS, is a 75 M who presents to the office today for change in stool caliber. Patient reports that his stool is smaller caliber and harder to pass. He also says that he has cramping in his lower abdominal before his bowel movement. He does report that the bowel movements are soft and he has daily bowel movements. No blood in his stool. His last colonoscopy was in 2007 and was normal. No family history of colon cancer. ROS General General: No weight change, appetite, fatigue, colon cancer, breast cancer or weakness HEENT HEENT: No difficulty swallowing, eye injury, eye surgery, swollen glands or hoarseness Endo Endocrine: No thyroid disease, diabetes mellitus, thyroid cancer, Hair loss, heat intolerance or cold intolerance Musc Musculoskeletal: Yes arthritis and rheumatoid arthritis; No back problems, gout or joint pain Cardio Cardiovascular: No murmur, pacemaker, heart disease, atrial fibrillation, high blood pressure, heart attack, heart stent, palpitations, shortness of breat with exertion or chest pain Psych Psychiatric: No depression, anxiety or hearing voices Resp Respiratory: Yes shortness of breath, Yes sleep apnea, No cough, Yes COPD, No asthma, Yes emphysema and No wheezing Gastro Gastrointestinal: No abdominal pain, No nausea or vomiting, No diarrhea, No constipation, No blood in stool, Yes acid reflux, No hemorrhoids, No ulcers, No gallbladder problem and No black,tarry stools Mandeep Hematologic: No blood thinners, No blood disorders, No bleeding, No anemia and No blood clots Neuro Neurologic: No weakness Exam Const General: cooperative Orientation: alert and oriented x3 HENMT Head: normal to inspection Neck Neck: normal visual inspection and full ROM Chest Chest palpation & inspection: normal inspection of the chest Resp Effort & Inspection: normal respiratory effort Other: Patient on oxygen Cardio Rate: regular rate Rhythm: regular rhythm GI Inspection: non-distended Palpation: soft and nontender Skin General: no rashes or lesions noted Neuro General: patient alert and patient oriented x3 Extrem General: full ROM Psych Appearance: grossly normal Mental Status: mental status grossly normal Assessment and Plan Assessment and Plan (1) Change in stool caliber: Status: Acute Orders: Orders: Colonoscopy Today Plan - Dr. Clint Benson MD: Patient has change in stool caliber with no blood. Patient reports his last colonoscopy was in 2007 and was normal. Plan for colonoscopy. I explained endoscopy in detail to the patient. I explained the risks including but not limited to stroke or heart attack with anesthesia, perforation of the GI tract, bleeding, infection. I explained that any of these could necessitate further emergency surgery. The patient understands and all questions were answered sufficiently. The patient wishes to proceed with procedure. Clint Benson MD Pager: [facility] [address] [place] [address], [address] [place] [address] Office: I have re-examined the patient. There are no clinical changes since date of exam.
[2021-02-20 10:30] VITALS: BP 142/88; BP 95/53; PULSE 64; RESP 16; TEMP 35.9; O2SAT 99
--- NOTE | 2021-02-20 10:31 | OP.CCLET_ITS ---
02/20/2021 Jt Glass Re : Colonoscopy procedure for Roberto Moser Dear Qaun This procedure was performed on Saturday, February 20, 2021. My impressions and recommendations are as follows: Impressions : - The entire examined colon is normal on direct and retroflexion views. - No specimens collected. Recommendations : - Discharge patient to home. - Resume previous diet. - Continue present medications. - Repeat colonoscopy is not recommended due to current age (66 years or older) for screening purposes. My findings are described in the full procedure note, which is enclosed. If I can be of further assistance, please feel free to contact me at Doctor phone number(s): , Work: . Sincerely, Clint Benson MD 02/20/2021 10:31:11 AM This report has been signed electronically.
--- NOTE | 2021-02-20 10:31 | OP.COLON_ITS ---
Patient Name: Roberto Moser Procedure Date: 02/20/2021 10:10 AM Date of : 1945 Age: 75 Procedure: Colonoscopy Indications: Change in stool caliber Providers: Clint Benson MD Medicines: Monitored Anesthesia Care Patient Profile: This is a 75 year old male. Refer to note in patient chart for documentation of history and physical. Last Colonoscopy: more than 10 years ago. Complications: No immediate complications. Procedure: Pre-Anesthesia Assessment: - Prior to the procedure, a History and Physical was performed, and patient medications and allergies were reviewed. The patient's tolerance of previous anesthesia was also reviewed. The risks and benefits of the procedure and the sedation options and risks were discussed with the patient. All questions were answered, and informed consent was obtained. Prior Anticoagulants: The patient has taken no previous anticoagulant or antiplatelet agents. After reviewing the risks and benefits, the patient was deemed in satisfactory condition to undergo the procedure. After I obtained informed consent, the scope was passed under direct vision. Throughout the procedure, the patient's blood pressure, pulse, and oxygen saturations were monitored continuously. The adult colonoscope was introduced through the anus and advanced to the cecum, identified by appendiceal orifice and ileocecal valve. The colonoscopy was performed without difficulty. The patient tolerated the procedure well. The quality of the bowel preparation was good. Scope In: 10:16:25 AM Scope Withdrawal Time 0 hours 6 minutes 8 seconds Scope Out: 10:25:58 AM Total Procedure Duration Time 0 hours 9 minutes 33 seconds Findings: The entire examined colon appeared normal on direct and retroflexion views. Impression: - The entire examined colon is normal on direct and retroflexion views. - No specimens collected. Recommendation: - Discharge patient to home. - Resume previous diet. - Continue present medications. - Repeat colonoscopy is not recommended due to current age (66 years or older) for screening purposes. Procedure Code(s): --- Professional --- 41008, Colonoscopy, flexible; diagnostic, including collection of specimen(s) by brushing or washing, when performed (separate procedure) Diagnosis Code(s): --- Professional --- R19.5, Other fecal abnormalities CPT copyright 2017 [employer]. All rights reserved. The codes documented in this report are preliminary and upon jacquard loom fixer review may be revised to meet current compliance requirements. Clint Benson MD 02/20/2021 10:31:11 AM This report has been signed electronically. Number of Addenda: 0 Note Initiated On: 02/20/2021 10:10 AM
[2021-02-20 10:35] VITALS: BP 142/88; BP 88/55; PULSE 63; RESP 16; O2SAT 99
[2021-02-20 10:40] VITALS: BP 142/88; BP 97/54; PULSE 63; RESP 16; O2SAT 100
[2021-02-20 10:45] VITALS: BP 117/76; BP 142/88; PULSE 61; RESP 16; TEMP 35.8; O2SAT 99
[2021-02-20 11:21] VITALS: BP 142/88
== END 2021-02-20 11:23 | disposition home or self-care (01) ==
LOC: EN 09:03 → AC 09:05
PROVIDERS: PCP Family Medicine; Referring Provider Family Medicine; Visit Provider Surgery
PROC: 0DJD8ZZ Inspection of Lower Intestinal Tract, Via Natural or Artificial Opening Endoscopic (ICD-10-PCS; CPT 45378; principal; 2021-02-20 10:10)
DX: R19.4 Change in bowel habit (principal); I27.20 Pulmonary hypertension, unspecified; J44.9 Chronic obstructive pulmonary disease, unspecified; M06.9 Rheumatoid arthritis, unspecified; E78.00 Pure hypercholesterolemia, unspecified; G47.33 Obstructive sleep apnea (adult) (pediatric); Z79.52 Long term (current) use of systemic steroids; Z79.899 Other long term (current) drug therapy; Z87.891 Personal history of nicotine dependence
CPT/HCPCS: 45378; J7120; J2405

== ENCOUNTER 2022-01-22 16:49 | Emergency (ER) | payer OTHER, SELFPAY ==
[2022-01-22] VITALS (10 sets, daily range): BP systolic 105–173; BP diastolic 56–93; PULSE 76–110; RESP 12–22; TEMP 36.5–38.9; O2SAT 88–99; BMI 63.3
--- NOTE | 2022-01-22 17:54 | EKG12_ITS ---
Test Reason : SOB Blood Pressure : / mmHG Vent. Rate : 099 BPM Atrial Rate : 099 BPM P-R Int : 152 ms QRS Dur : 092 ms QT Int : 328 ms P-R-T Axes : 055 -64 054 degrees QTc Int : 420 ms Normal sinus rhythm Incomplete right bundle branch block Left anterior fascicular block Cannot rule out Inferior infarct , age undetermined Abnormal ECG Confirmed by BRUNO ESPINOSA, MARTHA ([id number]), art editor DAMIAN BOOTH ([id number]) on 01/26/2022 11:30:27 AM Referred By: Confirmed By:MARTHA CARR MD
--- NOTE | 2022-01-22 17:55 | RAD_ITS ---
EXAM: XR CHEST, 1 VIEW CLINICAL INDICATION: cough and fever TECHNIQUE: Frontal view of the chest. This report was created using [employer] report generation technology. COMPARISON: 01/18/2018 FINDINGS: LUNGS AND PLEURAL SPACES: There is trace interstitial opacities in the lung bases which may represent scar. There is no focal consolidation. No pneumothorax. No effusion. HEART: Unremarkable. Cardiac silhouette not enlarged. MEDIASTINUM: Central airways and mediastinal contour are unremarkable. BONES/JOINTS: Unremarkable. SOFT TISSUES: Unremarkable. RAD/Chest 1 View (Portable) IMPRESSION: Mild interstitial scarring with no acute pulmonary abnormality. Electronically Signed: Yahir Corona MD at 18:24 EST ,
[2022-01-22] MEDS: Acetaminophen 500 MG Tablet 1000 MG PO (18:04)
[2022-01-22] MEDS: 0.9% Normal Saline 1,000 ML 999 ML IV (18:05)
[2022-01-22 18:34] LABS: Absolute Lymphocyte Count 0.77 X10^3/uL (0.83-4.51); Absolute Neutrophil Count 7.5 X10^3/uL (2.0-7.7); Basophil# 0.04 X10^3/uL; Basophil% 0.4 % (0-1); Eosinophil# 0.05 X10^3/uL; Eosinophils% 0.6 % (0-5); Hematocrit 50.8 % (40-54); Hemoglobin 16.8 g/dL (13.0-16.5); Lymphocyte # 0.77 X10^3/ul (0.83-4.51); Lymphocyte % 8.5 % (19-41); Mean Corp Hgb Conc 33.1 g/dL (32-36); Mean Corpuscular Hgb 30.7 pg (27.0-32.0); Mean Corpuscular Volume 92.7 fL (80-94); Mean Platelet Vol. 9.5 fl (6.2-12.0); Monocyte# 0.64 X10^3/uL; Monocyte% 7.1 % (0-10); NRBC Flagged by Analyzer 0 % (0-5); Neutrophil # 7.48 X10^3/uL (2.7-7.7); Neutrophil % 83.1 % (47-70); Platelet Count 152 K/mm3 (150-450); RBC Distribution Width CV 12.2 % (11.6-14.6); RBC Distribution Width SD 41.9 fl (35.1-43.9); Red Blood Count 5.48 M/mm3 (4.6-6.2)
[2022-01-22 18:40] LABS: International Normalized Ratio 1.1; Prothrombin Time (Protime)PT. 13.5 SECONDS (11.7-14.9)
[2022-01-22 18:41] LABS: Partial Thromboplast Time 30.6 Seconds (24.1-36.2)
[2022-01-22 18:50] LABS: AST(SGOT) 18 U/L (15-37); Alanine Aminotransfer ALT/SGPT 27 U/L (16-61); Albumin, Serum 3.8 g/dL (3.2-5.0); Alkaline Phosphatase 101 U/L (45-117); Anion Gap 7 (5-15); BUN 16 mg/dL (7-18); BUN/Creat Ratio 16.6 RATIO (10-20); Calcium,Total 9.4 mg/dL (8.5-10.1); Chloride 104 mmol/L (98-107); Creatinine, Serum 0.96 mg/dL (0.70-1.30); EST Glomerular Filtration Rate 81 mL/min (>60); Est Glom Filt Rate - Afr Amer 98 mL/min (>60); Estimated Creatinine Clearance 63.12 ml/min; Globulin 3.9 g/dL (2.2-4.2); Glucose 105 mg/dL (74-106); Potassium 3.8 mmol/L (3.5-5.1); Protein, Total 7.7 g/dL (6.4-8.2); Sodium Level 139 mmol/L (136-145); Troponin-I HS 13 pg/mL (3.0-78.0)
[2022-01-22 18:51] LABS: Lactic Acid 1.1 mmol/L (0.4-1.9)
[2022-01-22 18:55] LABS: Bacteria 0 SEEN /hpf (None Seen); Mucous, Urine 0 SEEN /hpf (<or=2+)
[2022-01-22 18:56] LABS: Color, Urine Yellow (Yellow); Glucose, Dipstick Normal (Normal); Ketone-Dipstick Negative (Negative); Leukocyte Esterase-Dipstick Negative /ul (Negative); Nitrite-Dipstick Negative (Negative); Occult Blood-Urine 10 /ul (Negative); Protein-Dipstick Negative (Negative); Specific Gravity, Urine 1.015 (1.002-1.030); Urine Bilirubin Dipstick Negative (Negative); Urine Clarity Clear (Clear); Urine Urobilinogen Normal (Normal)
[2022-01-22 19:08] LABS: Red Blood Cells-Urine 0-5 SEEN /hpf (0-5); Squamous Epithelial Cells - UA 0-5 SEEN /hpf (0-5); White Blood Cells 0-5 SEEN /hpf (0-5)
--- NOTE | 2022-01-22 19:16 | ED.VIS.DYS ---
HPI History of Present Illness Chief Complaint: Shortness of Breath Informant: patient Narrative Narrative: 76-year-old male presenting to the emergency department with chief complaint of dyspnea. Patient states he has had a increasing cough for the past couple days but today has been doing noticeably short of breath. He has developed fever has increased his oxygen from 2 L upwards. He notes some generalized body aches. Notes a history of COPD/emphysema as well as pulmonary hypertension. He is also being treated for obstructive sleep apnea. He also has a history of rheumatoid arthritis. [facility] Medical History Cardiology follow-up encounter COPD (chronic obstructive pulmonary disease) CPAP (continuous positive airway pressure) dependence Easy bruising Elevated PSA Excessive bleeding Former smoker Height loss High cholesterol History of echocardiogram History of IBS History of stress test Hypercholesteremia Migraine headache On home oxygen therapy On prednisone therapy KENY (obstructive sleep apnea) Pulmonary HTN Respiratory failure with hypoxia Rheumatoid arthritis Rheumatoid arthritis Shortness of breath on exertion SOB (shortness of breath) Stage 2 moderate COPD by GOLD classification Wears dentures Wears hearing aid Home Medications glucosamine sulfate-chondroitin sulfate A 500 mg-250 mg capsule 1 cap PO DAILY 04/01/17 [History Last Taken Unknown] hydroxychloroquine 200 mg tablet 200 mg PO BID 04/01/17 [History Last Taken Unknown] cholecalciferol (vitamin D3) 50 mcg (2,000 unit) capsule 1,000 unit PO QDAY 10/11/17 [History Last Taken Unknown] adalimumab 10 mg/0.2 mL subcutaneous syringe kit (Humira) 10 mg subcut .Q2WEEK 03/24/20 [History Last Taken Unknown] albuterol sulfate 90 mcg/actuation aerosol inhaler 2 puff inhalation Q6H PRN Shortness Of Breath 07/17/20 [History Last Taken Unknown] tiotropium bromide 2.5 mcg/actuation mist for inhalation (Spiriva Respimat) 2 puff inhalation DAILY 07/17/20 [History Last Taken Unknown] valacyclovir 1 gram tablet 1,000 mg PO Q12H PRN Cold Sores 07/17/20 [History Last Taken Unknown] TaudArco 1 cap PO/SL DAILY 02/17/21 [History Last Taken Unknown] calcium 600 mg capsule 600 mg PO DAILY 02/17/21 [History Last Taken Unknown] rosuvastatin 20 mg tablet (Crestor) 20 mg PO QHS 02/17/21 [History Last Taken Unknown] Protonix 1 tab DAILY 02/20/21 [History Last Taken 02/20/21] albuterol sulfate 90 mcg/actuation aerosol inhaler (Ventolin HFA) 2 puff inhalation Q3H PRN Wheezing ##1 01/22/22 [Rx Last Taken Unknown] amoxicillin 875 mg-potassium clavulanate 125 mg tablet 875 mg PO Q12H #20 TABLETS 01/22/22 [Rx Last Taken Unknown] azithromycin 250 mg tablet 250 mg PO DAILY #4 TABLETS 01/22/22 [Rx Last Taken Unknown] Allergy/AdvReac Type Severity Reaction Status Date / Time No Known Allergies Allergy Verified 01/22/22 16:50 Family History Mother Cancer pancreas Sister Non-Hodgkin lymphoma Father Cancer Surgical History History of colonoscopy (~2007) History of hernia repair Social History Smoking Status: Former smoker Tobacco: How many years used: 40 how long ago did patient quit smokin, 2pk/day second hand exposure: Yes alcohol intake: current substance use type: does not use ROS ROS ED Constitutional Constitutional ED: Reports chills and fever(s); Denies weight loss Eyes Eyes: Denies change in vision or diplopia ENT ENT ED: Reports sore throat; Denies ear pain or rhinorrhea Cardiovascular Cardiovascular: Denies chest pain, orthopnea, palpitations or racing heartbeat Respiratory/Chest Respiratory/Chest: Reports cough, dyspnea and dyspnea on exertion; Denies orthopnea Gastrointestinal Gastrointestinal: Reports diarrhea; Denies abdominal pain, nausea or vomiting Genitourinary Genitourinary ED: Denies dysuria, hematuria or urinary frequency Musculoskeletal Musculoskeletal: Reports myalgias; Denies arthralgias or back pain Integumentary Denies abscess or rash Neurologic Neurologic: Reports headache(s); Denies weakness Psychiatric Psychiatric: Denies anxiety, depression, suicidal ideation or suicidal thoughts Endocrine Endocrinology: Denies polydipsia, polyphagia or polyuria Allergic/Immunologic Allergic/Immunologic ED: Denies mouth swelling, tongue swelling or urticaria EXAM Physical Exam Const Vital Signs: 01/22/22 16:51 01/22/22 16:54 01/22/22 17:19 Temperature 102.1 F H 102.1 F H Temperature Source Temporal Temporal Pulse Rate 110 H 110 H Respiratory Rate 19 H 19 H Respiratory Effort Short of Breath Labored Accessory Muscle Use Nasal Flaring Respiratory Depth Deep Respiratory Pattern Normal Blood Pressure 173/93 H 173/93 H Blood Pressure Mean 119 119 Pulse Ox 94 94 Oxygen Delivery Method Nasal Cannula Nasal Cannula Nasal Cannula Oxygen Flow Rate (L/min) 4 4 5 01/22/22 17:58 01/22/22 18:01 01/22/22 18:56 Temperature 102.1 F H Temperature Source Temporal Pulse Rate 102 H Respiratory Rate 22 H Respiratory Effort Respiratory Depth Respiratory Pattern Blood Pressure 143/74 H Blood Pressure Mean 97 Pulse Ox 91 90 91 Oxygen Delivery Method Room Air Nasal Cannula Nasal Cannula Oxygen Flow Rate (L/min) 4 4 3 01/22/22 18:56 01/22/22 19:00 01/22/22 19:15 Temperature 99.4 F H Temperature Source Oral Pulse Rate 76 Respiratory Rate 19 H Respiratory Effort Respiratory Depth Respiratory Pattern Blood Pressure 114/67 Blood Pressure Mean 82 Pulse Ox 92 88 91 Oxygen Delivery Method Nasal Cannula Nasal Cannula Nasal Cannula Oxygen Flow Rate (L/min) 3.5 3.5 4 01/22/22 20:02 Temperature Temperature Source Pulse Rate 83 Respiratory Rate 12 Respiratory Effort Respiratory Depth Respiratory Pattern Normal Blood Pressure Blood Pressure Mean Pulse Ox Oxygen Delivery Method Oxygen Flow Rate (L/min) Positive well nourished and well developed General Appearance ED: well developed HEENT Reports normocephalic, head/scalp atraumatic and moist mucous membranes Eyes PERRL and EOMs intact bilaterally Neck no lymphadenopathy, supple and no JVD Resp normal respiratory effort and clear to auscultation bilaterally Cardio regular rate, regular rhythm and no murmurs GI normal to inspection, nondistended, normoactive bowel sounds and non-tender Palpation: soft Back/Spine no CVA tenderness and normal ROM Extremity normal to inspection General Extremety ED: Negative for edema General Extremity: Negative for edema Neuro oriented x3 and CN's II-XII intact bilaterally Sensorium / Orientation: alert Motor Exam: strength 5/5 throughout Psych mental status grossly normal Mood & Affect: Negative for depressed or tearful Skin no rashes or lesions noted and no wounds MDM MDM MDM Narrative Medical decision making narrative: Patient's white count is 9. Coags are normal. Lactic acid is normal. Urinalysis is normal. CMP is negative. My interpretation of the chest x-ray is chronic changes. COVID and influenza are negative. CTA of the chest was obtained which demonstrates chronic changes of emphysema as well as a left lower lobe infiltrate. Patient received Rocephin and azithromycin. He also received Tylenol and a breathing treatment. At the current time he states he feels really good. He is requiring 4 L of nasal cannula. I talked with him regarding admission versus outpatient follow-up. He states that he feels comfortable going home managing his fever using his rescue inhaler and taking antibiotics. He will return if worsening or concerns. We talked about aggressive fever control. We talked about hydration and how to increase his oxygen using his CPAP at night. Patient and his note understanding of plan and are comfortable with the Lab Data Attestation: I reviewed the patient's lab results. Labs: Laboratory Results - last 24 hr 01/22/22 01/22/22 01/22/22 18:10 18:14 18:14 WBC 9.0 RBC 5.48 Hgb 16.8 H Hct 50.8 MCV 92.7 MCH 30.7 MCHC 33.1 RDW Std Deviation 41.9 RDW Coeff of [place] 12.2 Plt Count 152 MPV 9.5 Immature Gran % (Auto) 0.300 Neut % (Auto) 83.1 H Lymph % (Auto) 8.5 L [place] % (Auto) 7.1 Eos % (Auto) 0.6 Baso % (Auto) 0.4 Absolute Neuts (auto) 7.5 Absolute Lymphs (auto) 0.77 L Nucleated RBC % 0 PT 13.5 INR 1.1 APTT 30.6 Sodium Potassium Chloride Carbon Dioxide Anion Gap BUN Creatinine Estim Creat Clear Calc Est GFR (MDRD) Af Amer Est GFR (MDRD) Non-Af BUN/Creatinine Ratio Glucose Lactic Acid Calcium Total Bilirubin AST ALT Alkaline Phosphatase Troponin I High Sens Total Protein Albumin Globulin Albumin/Globulin Ratio Urine Color Yellow Urine Clarity Clear Urine pH 8.0 Ur Specific [place] 1.015 Urine Protein Negative Urine Glucose (UA) Normal Urine Ketones Negative Urine Occult Blood 10 H Urine Nitrite Negative Urine Bilirubin Negative Urine Urobilinogen Normal Ur Leukocyte Esterase Negative Urine RBC 0-5 SEEN Urine WBC 0-5 SEEN Ur Squamous Epith Cells 0-5 SEEN Urine Bacteria 0 SEEN Urine Mucus 0 SEEN 01/22/22 01/22/22 18:14 18:14 WBC RBC Hgb Hct MCV MCH MCHC RDW Std Deviation RDW Coeff of [place] Plt Count MPV Immature Gran % (Auto) Neut % (Auto) Lymph % (Auto) [place] % (Auto) Eos % (Auto) Baso % (Auto) Absolute Neuts (auto) Absolute Lymphs (auto) Nucleated RBC % PT INR APTT Sodium 139 Potassium 3.8 Chloride 104 Carbon Dioxide 28.0 Anion Gap 7 BUN 16 Creatinine 0.96 Estim Creat Clear Calc 63.12 Est GFR (MDRD) Af Amer 98 Est GFR (MDRD) Non-Af 81 BUN/Creatinine Ratio 16.6 Glucose 105 Lactic Acid 1.1 Calcium 9.4 Total Bilirubin 0.80 AST 18 ALT 27 Alkaline Phosphatase 101 Troponin I High Sens 13 Total Protein 7.7 Albumin 3.8 Globulin 3.9 Albumin/Globulin Ratio 1.0 Urine Color Urine Clarity Urine pH Ur Specific [place] Urine Protein Urine Glucose (UA) Urine Ketones Urine Occult Blood Urine Nitrite Urine Bilirubin Urine Urobilinogen Ur Leukocyte Esterase Urine RBC Urine WBC Ur Squamous Epith Cells Urine Bacteria Urine Mucus Radiography Diagnostic Testing: Clinical Impression(s) from Imaging Studies Chest X-Ray 01/22/22 17:55 IMPRESSION: Mild interstitial scarring with no acute pulmonary abnormality. Electronically Signed: Yahir Corona MD at 18:24 EST , Chest CTA 01/22/22 19:32 IMPRESSION: 1. Lower lobe interstitial fibrosis intermixed with a pneumonia. 2. No demonstrated pulmonary embolism or arterial dissection. 3. Stable hepatic cysts. Stable left renal cyst. Electronically Signed: Arden Guerra MD at 20:02 EST , EKG Initial EKG: Attestation: I personally reviewed and interpreted this EKG as follows: Comments: Normal sinus rhythm with a ventricular rate of 99 bpm. Incomplete right bundle branch noted with a right anterior fascicular block Discharge Plan Triage Chief Complaint: Shortness of Breath ED Provider: Blane Matthews Dx/Rx/DC Orders Clinical Impression: Rheumatoid arthritis, Stage 2 moderate COPD by GOLD classification, Chronic respiratory failure with hypoxia, KENY (obstructive sleep apnea), Pulmonary HTN, Left lower lobe pneumonia Instructions: ED Pneumonia (Adult) Prescriptions: New albuterol sulfate [Ventolin HFA] 90 mcg/actuation HFA aerosol inhaler 2 puff inhalation Q3H PRN (Reason: Wheezing) Qty: 1 0RF Rx Instructions: dispense with spacer azithromycin [azithromycin] 250 mg tablet 250 mg PO DAILY Qty: 4 0RF amoxicillin-pot clavulanate [amoxicillin-pot clavulanate] 875-125 mg tablet 875 mg PO Q12H Qty: 20 0RF No Action hydroxychloroquine 200 mg tablet 200 mg PO BID glucosamine sulfate-chondroitin sulfate A 500 mg-250 mg capsule 500-250 mg capsule 1 cap PO DAILY cholecalciferol (vitamin D3) 2,000 unit capsule 1,000 unit PO QDAY Humira 10 mg/0.2 mL syringe kit 10 mg SC .Q2WEEK valacyclovir 1 gram Tablet 1,000 mg PO Q12H PRN (Reason: Cold Sores) albuterol sulfate 90 mcg/actuation Hfa Aerosol Inhaler 2 puff INHALATION Q6H PRN (Reason: Shortness Of Breath) Spiriva Respimat 2.5 mcg/actuation Mist 2 puff INHALATION DAILY calcium 600 mg Capsule 600 mg PO DAILY rosuvastatin [Crestor] 20 mg Tablet 20 mg PO QHS TaudArco 1 cap PO/SL DAILY Protonix 1 tab DAILY [facility] [Primary Care Provider] - 1 Week Disposition Disposition: Home, Self Care
--- NOTE | 2022-01-22 19:32 | CT_ITS ---
EXAM: CT ANGIOGRAPHY CHEST WITHOUT AND WITH INTRAVENOUS CONTRAST CLINICAL INDICATION: pulmonary embolism Technologist Notes INCREASED SOB AND CHILLS STARTING TODAY. COLD FOR DAYS. FEVER IN TRIAGE. TECHNIQUE: Helically acquired angiography images were obtained of the chest without and with intravenous contrast. This CT exam was performed using one or more of the following dose reduction techniques: automated exposure control, adjustment of the mA and/or kV according to patient size, and/or use of iterative reconstruction technique. This report was created using [employer] AI report generation technology. MIP reconstructed images were created and reviewed. CONTRAST: IV 100mL [id number] RADIATION DOSE: CTDIvol = 12.58 mGy, DLP = 394.85 mGy-cm COMPARISON: Jul 22 2016 7:51am FINDINGS: PULMONARY ARTERIES: No demonstrated pulmonary embolism or arterial dissection. AORTA: There is atherosclerotic calcification of the aortic arch with tortuosity and elongation of the aortic arch and descending thoracic aorta. Normal in caliber. No evidence of dissection. GREAT VESSELS OF AORTIC ARCH: Unremarkable. Normal in caliber. No evidence of dissection. LUNGS AND PLEURAL SPACES: Lower lobe interstitial fibrosis intermixed with a pneumonia. There are scattered blebs and bullae. This can be seen in pulmonary emphysema. No mass. No pleural effusion or thickening. HEART: There are calcifications of the coronary arteries. No pericardial effusion. No signs of right heart strain, ratio of right ventricle to left ventricle measures less than 1. MEDIASTINUM: Unremarkable. No mediastinal or hilar adenopathy. Esophagus is unremarkable. No hiatal hernia. THYROID: Unremarkable. No thyroid lesions. BONES/JOINTS: There are degenerative changes of the shoulders. There are multi-level degenerative changes of the thoracic spine. No suspicious lytic or blastic abnormality. LIVER: Stable hepatic cysts. Stable left renal cyst. CT/CTA Chest W/WO Contrast IMPRESSION: 1. Lower lobe interstitial fibrosis intermixed with a pneumonia. 2. No demonstrated pulmonary embolism or arterial dissection. 3. Stable hepatic cysts. Stable left renal cyst. Electronically Signed: Arden Guerra MD at 20:02 EST ,
[2022-01-22] MEDS: Ceftriaxone 1 GM/50 ML BAG IV (19:55)
[2022-01-22] MEDS: Ipratropium/Albuterol Sulfate 3 ML AMPUL.NEB INHALATION (19:59)
== END 2022-01-22 22:10 | disposition home or self-care (01) ==
PROVIDERS: Emergency Provider Emergency Medicine; Visit Provider Emergency Medicine
DX: J18.9 Pneumonia, unspecified organism (principal); M06.9 Rheumatoid arthritis, unspecified; J43.9 Emphysema, unspecified; I27.20 Pulmonary hypertension, unspecified; J96.11 Chronic respiratory failure with hypoxia; G47.33 Obstructive sleep apnea (adult) (pediatric); E78.00 Pure hypercholesterolemia, unspecified; Z20.822 Contact with and (suspected) exposure to COVID-19; Z79.899 Other long term (current) drug therapy; Z87.891 Personal history of nicotine dependence
CPT/HCPCS: 71045; 71275; 80053; 81001; 83605; 84484; 85025; 85610; 85730; 87040; 87086; 87428; 87635; 93005; 94640; 96361; 96365; 96366; 96367; 99283; J7030; Q9967; U0003; U0005

== ENCOUNTER 2023-07-07 11:51 | Emergency (ER) | payer OTHER, SELFPAY ==
[2023-07-07 11:51] VITALS: BP 131/114; PULSE 65; RESP 16; TEMP 35.8; O2SAT 91; BMI 29.0
--- NOTE | 2023-07-07 12:24 | ED.VIS.LOWEX ---
HPI History of Present Illness HPI Narrative: 77[facility] patient who has had right proximal calf pain for 2 weeks. Denies any fall injury or trauma. No fever. No history of DVT or PE or significant risk factors. No recent travel, surgery, hospitalization or immobilization. Was at the [facility] today. They wanted to get an ultrasound which they could not do. They reportedly x-rayed his knee while he was there. Chief Complaint: Lower Extremity Injury Informant: patient Occured/Mechanism Mechanism/Context: No injury and No blunt trauma Onset/Context/Timing Onset: Weeks Context: Gradual Onset Timing: Continuous Quality of Pain: Dull and Aching Current Severity: Mild Maximum Severity: Mild Associated Symptoms Associated Symptoms: Negative for Parasthesia, Weakness or Loss of Funtion Narrative Narrative: 77-year-old male 2-week history of right calf pain. Denies any fall injury or trauma. Prior similar symptoms: No Recent Illness/Hospitalization: No PFSH PFSH Medical History Cardiology follow-up encounter COPD (chronic obstructive pulmonary disease) CPAP (continuous positive airway pressure) dependence Easy bruising Elevated PSA Excessive bleeding Former smoker Height loss High cholesterol History of echocardiogram History of IBS History of stress test Hypercholesteremia Migraine headache On home oxygen therapy On prednisone therapy KENY (obstructive sleep apnea) Pulmonary HTN Respiratory failure with hypoxia Rheumatoid arthritis Rheumatoid arthritis Shortness of breath on exertion SOB (shortness of breath) Stage 2 moderate COPD by GOLD classification Wears dentures Wears hearing aid Home Medications glucosamine sulfate-chondroitin sulfate A 500 mg-250 mg capsule 1 cap PO DAILY 04/01/17 [History Last Taken Unknown] hydroxychloroquine 200 mg tablet 200 mg PO BID 04/01/17 [History Last Taken Unknown] cholecalciferol (vitamin D3) 50 mcg (2,000 unit) capsule 1,000 unit PO QDAY 10/11/17 [History Last Taken Unknown] adalimumab 10 mg/0.2 mL subcutaneous syringe kit (Humira) 10 mg subcut .Q2WEEK 03/24/20 [History Last Taken Unknown] albuterol sulfate 90 mcg/actuation aerosol inhaler 2 puff inhalation Q6H PRN Shortness Of Breath 07/17/20 [History Last Taken Unknown] tiotropium bromide 2.5 mcg/actuation mist for inhalation (Spiriva Respimat) 2 puff inhalation DAILY 07/17/20 [History Last Taken Unknown] valacyclovir 1 gram tablet 1,000 mg PO Q12H PRN Cold Sores 07/17/20 [History Last Taken Unknown] TaudArco 1 cap PO/SL DAILY 02/17/21 [History Last Taken Unknown] calcium 600 mg capsule 600 mg PO DAILY 02/17/21 [History Last Taken Unknown] rosuvastatin 20 mg tablet (Crestor) 20 mg PO QHS 02/17/21 [History Last Taken Unknown] Protonix 1 tab DAILY 02/20/21 [History Last Taken 02/20/21] albuterol sulfate 90 mcg/actuation aerosol inhaler (Ventolin HFA) 2 puff inhalation Q3H PRN Wheezing ##1 01/22/22 [Rx Last Taken Unknown] amoxicillin 875 mg-potassium clavulanate 125 mg tablet 875 mg (0.875 x 875-125 mg) PO Q12H #20 TABLETS 01/22/22 [Rx Last Taken Unknown] azithromycin 250 mg tablet 250 mg PO DAILY #4 TABLETS 01/22/22 [Rx Last Taken Unknown] Allergy/AdvReac Type Severity Reaction Status Date / Time No Known Allergies Allergy Verified 07/07/23 11:55 Family History Mother Cancer pancreas Sister Non-Hodgkin lymphoma Father Cancer Surgical History History of colonoscopy (~2007) History of hernia repair Social History Smoking Status: Former smoker Tobacco: How many years used: 40 how long ago did patient quit smokin, 2pk/day second hand exposure: Yes alcohol intake: current substance use type: does not use ROS ROS ED ROS Narrative Denies recent illness. No chest pain or shortness of breath. Review of Systems ROS Unobtainable: Denies due to encephalopathy Constitutional Constitutional ED: Denies chills, fever(s) or subjective Eyes Eyes: Denies blurry vision ENT ENT ED: Denies ear pain Cardiovascular Cardiovascular: Denies chest pain Respiratory/Chest Respiratory/Chest: Denies cough or dyspnea Gastrointestinal Gastrointestinal: Denies abdominal pain Genitourinary Genitourinary ED: Denies dysuria or hematuria Musculoskeletal Musculoskeletal: Denies arthralgias or back pain Integumentary Denies abscess or Abrasions Neurologic Neurologic: Denies headache(s) or paresthesias Psychiatric Psychiatric: Denies anxiety or depression Endocrine Endocrinology: Denies polydipsia, polyphagia or polyuria Hematologic/Lymphatic Hematologic/Lymphatic: Denies easy bleeding or easy bruising Allergic/Immunologic Allergic/Immunologic ED: Denies mouth swelling or tongue swelling EXAM Physical Exam Narrative Exam Narrative: 77-year-old male no acute distress vital signs stable afebrile. HEENT exam unremarkable. He chronically wears oxygen. Neck nontender. Lungs are clear. Heart regular rhythm rate about 65 no murmur. Chest wall and ribs nontender. Abdomen soft nontender. Moving all 4 extremities. 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 Dorsi plantarflexion intact. He complains of right calf tenderness. There is no edema or cords. There is no swelling. He has normal flexion extension of his right hip, knee ankle and foot. Dorsi and plantarflexion is intact. Normal motor strength and sensation. There is no signs of infection. He has mild swelling to his right knee. There is no septic joint. He had that x-rayed today at the [facility]. Neurologically is awake and alert. Answering questions following commands. No focal motor deficits. Const Vital Signs: 07/07/23 11:51 Temperature 96.5 F L Temperature Source Temporal Pulse Rate 65 Respiratory Rate 16 Blood Pressure 131/114 H Blood Pressure Mean 119 Pulse Ox 91 Oxygen Delivery Method Nasal Cannula Oxygen Flow Rate (L/min) 3 Positive well nourished and well developed; Negative for cachectic, contractures or unkempt General Appearance ED: well developed and NAD; Negative for unkempt, cachectic or contractures Nutritional Appearance: Negative for cachectic HEENT Reports moist mucous membranes normocephalic and atraumatic; Negative for trauma or tenderness Eyes PERRL General Eye ED: Negative for other Neck full ROM and supple Thyroid: Negative for tender Lymph Lymphatic: Negative for other Chest Wall inspection of chest normal Chest: Negative for other Resp normal respiratory effort, no retractions and clear to auscultation bilaterally Effort and Inspection: Negative for pain with movement Auscultation: Negative for rales, rhonchi, wheezes or diminished lung sounds Cardio regular rate, regular rhythm, S1 normal heart sound, S2 normal heart sound and no murmurs Rate: Negative for bradycardia or tachycardic Rhythm: Negative for abnormal rhythm Bruits: Negative for other GI non-tender, non-distended and no masses Inspection: Negative for abdominal distention Auscultation: normoactive bowel sounds Palpation: soft; Negative for tender, guarding or rebound tenderness present Back/Spine no CVA tenderness General Back: Negative for CVA tenderness Cervical Spine: Negative for cervical spine tenderness Thoracic Spine / Upper Back: Negative for thoracic spinal tenderness Extremity normal to inspection and full ROM General Extremety ED: Negative for cyanosis or edema General Extremity: Negative for cyanosis or edema Neuro oriented x3, CN's II-XII intact bilaterally and moves all extremities Sensorium / Orientation: alert, oriented to person, oriented to place and oriented to time; Negative for orientation impaired, confused, lethargic or stuporous Motor Exam: strength 5/5 throughout Psych mental status grossly normal Appearance: Negative for unkempt Speech: No other Mood & Affect: Negative for anxious Skin Lesions: no lesions Rashes: no rashes Trauma: Negative for abrasion, laceration or puncture MDM MDM MDM Narrative Medical decision making narrative: Well-appearing 77-year-old male who [facility] his right lower extremity rule out DVT. Clinically I think is very low suspicion. No history. No risk factors. Exam is benign. They reportedly x-rayed his right knee there today. It may be from arthritis of his knee. I am obtaining the ultrasound. Repeat exam at 1:30 pm unchanged. The noninvasive the leg was negative. Will be discharged home. History & Record Review Discussion w/independent historian: Patient Additional record(s) reviewed:: Prior inpatient record, Prior outpatient record, Prior ED visit, Prior labs and No prior records Discharge Plan Triage Chief Complaint: Lower Extremity Injury ED Provider: Gabriele Romero Dx/Rx/DC Orders Clinical Impression: History of COPD, Calf pain Instructions: ED Muscle Strain, Extremity Prescriptions: No Action hydroxychloroquine 200 mg tablet 200 mg PO BID glucosamine sulfate-chondroitin sulfate A 500 mg-250 mg capsule 500-250 mg capsule 1 cap PO DAILY cholecalciferol (vitamin D3) 2,000 unit capsule 1,000 unit PO QDAY Humira 10 mg/0.2 mL syringe kit 10 mg SC .Q2WEEK valacyclovir 1 gram Tablet 1,000 mg PO Q12H PRN (Reason: Cold Sores) albuterol sulfate 90 mcg/actuation Hfa Aerosol Inhaler 2 puff INHALATION Q6H PRN (Reason: Shortness Of Breath) Spiriva Respimat 2.5 mcg/actuation Mist 2 puff INHALATION DAILY calcium 600 mg Capsule 600 mg PO DAILY rosuvastatin [Crestor] 20 mg Tablet 20 mg PO QHS TaudArco 1 cap PO/SL DAILY Protonix 1 tab DAILY albuterol sulfate [Ventolin HFA] 90 mcg/actuation HFA aerosol inhaler 2 puff inhalation Q3H PRN (Reason: Wheezing) Qty: 1 0RF Rx Instructions: dispense with spacer azithromycin [azithromycin] 250 mg tablet 250 mg PO DAILY Qty: 4 0RF amoxicillin-pot clavulanate [amoxicillin-pot clavulanate] 875-125 mg tablet 875 mg PO Q12H Qty: 20 0RF [facility] Provider: [facility] Referrals: [facility] [Primary Care Provider] - 10-14 Days if not better Activity Restrictions/Additional Instructions: The ultrasound of your leg showed no blood clot. The pain may be musculoskeletal coming from your knee or calf strain. This should progressively get better. Tylenol and or Motrin for pain. Follow-up if not improving. Disposition Disposition: Home, Self Care
[2023-07-07 12:51] VITALS: BP 123/75; PULSE 64; RESP 18; TEMP 36; O2SAT 92
== END 2023-07-07 13:48 | disposition home or self-care (01) ==
PROVIDERS: Emergency Provider Emergency Medicine; Visit Provider Emergency Medicine
DX: M79.661 Pain in right lower leg (principal); M06.9 Rheumatoid arthritis, unspecified; J44.9 Chronic obstructive pulmonary disease, unspecified; E78.00 Pure hypercholesterolemia, unspecified; Z79.899 Other long term (current) drug therapy; Z99.81 Dependence on supplemental oxygen; Z87.891 Personal history of nicotine dependence
CPT/HCPCS: 93971; 99282

== ENCOUNTER 2023-10-07 10:32 | Emergency (ER) | payer OTHER, SELFPAY ==
[2023-10-07 10:32] VITALS: BP 142/76; PULSE 65; RESP 14; TEMP 35.6; O2SAT 94; BMI 26.8
[2023-10-07] MEDS: Tetracaine 0.5% Ophthalmic Bottle 1 DRP LEFT EYE (11:12)
[2023-10-07] MEDS: Fluorescein 1 MG STRIP 1 STRIP LEFT EYE (11:12)
--- NOTE | 2023-10-07 11:30 | EX.ED.VIS.EY ---
HPI History of Present Illness Chief Complaint: Eye Problem Detail of Chief Complaint: Left eye corneal abrasion Informant: patient Onset/Context/Timing Location: Left Eye Narrative Narrative: Patient presents secondary to a corneal abrasion that he suffered last week. He states he was in the yard moving some dirt when he got some debris in his eye. He brushed his left eye and got a corneal abrasion. He was seen at an urgent care. He was given Cipro drops. He also had some TobraDex drops leftover from previous ailments and was using this as well. He states he was told if he was not better he should come to the emergency room. He has been using the drops for now 7 days and not improving so he presents for evaluation. [facility] could not be seen for at least several weeks. [facility] Medical History COPD (chronic obstructive pulmonary disease) Wears hearing aid Wears dentures Rheumatoid arthritis High cholesterol Excessive bleeding Easy bruising Migraine headache History of IBS Former smoker CPAP (continuous positive airway pressure) dependence On home oxygen therapy Shortness of breath on exertion History of echocardiogram History of stress test Cardiology follow-up encounter Respiratory failure with hypoxia Hypercholesteremia Rheumatoid arthritis Elevated PSA On prednisone therapy Height loss SOB (shortness of breath) Pulmonary HTN KENY (obstructive sleep apnea) Stage 2 moderate COPD by GOLD classification Home Medications ?Medication ?Instructions ?Recorded ?Last Taken ?Type glucosamine sulfate-chondroitin 1 cap PO DAILY 04/01/17 Unknown History sulfate A 500 mg-250 mg capsule hydroxychloroquine 200 mg tablet 200 mg PO BID 04/01/17 Unknown History cholecalciferol (vitamin D3) 50 1,000 unit PO QDAY 10/11/17 Unknown History mcg (2,000 unit) capsule adalimumab 10 mg/0.2 mL 10 mg subcut .Q2WEEK 03/24/20 Unknown History subcutaneous syringe kit (Humira) albuterol sulfate 90 mcg/actuation 2 puff inhalation Q6H PRN 07/17/20 Unknown History aerosol inhaler Shortness Of Breath tiotropium bromide 2.5 2 puff inhalation DAILY 07/17/20 Unknown History mcg/actuation mist for inhalation (Spiriva Respimat) valacyclovir 1 gram tablet 1,000 mg PO Q12H PRN Cold Sores 07/17/20 Unknown History TaudArco 1 cap PO/SL DAILY 02/17/21 Unknown History calcium 600 mg capsule 600 mg PO DAILY 02/17/21 Unknown History rosuvastatin 20 mg tablet (Crestor) 20 mg PO QHS 02/17/21 Unknown History Protonix 1 tab DAILY 02/20/21 02/20/21 History albuterol sulfate 90 mcg/actuation 2 puff inhalation Q3H PRN Wheezing 01/22/22 Unknown Rx aerosol inhaler (Ventolin HFA) ##1 amoxicillin 875 mg-potassium 875 mg PO Q12H #20 TABLETS 01/22/22 Unknown Rx clavulanate 125 mg tablet azithromycin 250 mg tablet 250 mg PO DAILY #4 TABLETS 01/22/22 Unknown Rx Allergy/AdvReac Type Severity Reaction Status Date / Time No Known Allergies Allergy Verified 10/07/23 10:32 Family History Mother Cancer pancreas Sister Non-Hodgkin lymphoma Father Cancer Surgical History History of colonoscopy (~2007) History of hernia repair Social History Smoking Status: Former smoker Tobacco: How many years used: 40 how long ago did patient quit smokin, 2pk/day second hand exposure: Yes alcohol intake: current substance use type: does not use ROS ROS ED Constitutional Constitutional ED: Denies chills or fever(s) Eyes Eyes: Reports discharge from eye(s); Denies change in vision ENT ENT ED: Reports discharge from eye(s); Denies rhinorrhea or sore throat Cardiovascular Cardiovascular: Denies chest pain Respiratory/Chest Respiratory/Chest: Denies cough or dyspnea Gastrointestinal Gastrointestinal: Denies abdominal pain Musculoskeletal Musculoskeletal: Denies back pain or extremity pain Integumentary Denies Abrasions or rash Neurologic Neurologic: Denies headache(s) or weakness Allergic/Immunologic Allergic/Immunologic ED: Denies lip swelling or urticaria EXAM Physical Exam Const Vital Signs: 10/07/23 10:32 Temperature 96.1 F L Temperature Source Temporal Pulse Rate 65 Respiratory Rate 14 Blood Pressure 142/76 H Blood Pressure Mean 98 Pulse Ox 94 Oxygen Delivery Method Nasal Cannula Oxygen Flow Rate (L/min) 2 Positive well nourished and well developed General Appearance ED: well developed Eyes Eyes Narrative: Left eye injected and watering. No eyelid edema or erythema. Resp normal respiratory effort and clear to auscultation bilaterally Cardio regular rate and regular rhythm Extremity normal to inspection Neuro oriented x3 MDM MDM MDM Narrative Medical decision making narrative: Tetracaine applied to the left eye. Fluorescein stain does reveal uptake at around the 4 o'clock position and an irregular round shape. Slit-lamp examination is performed. There is no evidence of ulceration, but there does appear to be an irregularly shaped round abrasion. Treatment and Re-Evaluation Narrative: I paged ophthalmology to speak with them regarding different treatment versus exam in their office. There was a delay in a return call and patient was discharged home with advisement that I would call him as soon as I spoke with Dr. Munroe. Dr. Munroe does relate patient needs to be examined in their office and request the patient just come over this afternoon and they would work him in. I called the patient at home and he is in agreement with the plan. Discharge Plan Triage Chief Complaint: Eye Problem ED Provider: Jayne Stover Dx/Rx/DC Orders Clinical Impression: Abrasion, corneal Instructions: ED Corneal Abrasion Prescriptions: No Action hydroxychloroquine 200 mg tablet 200 mg PO BID glucosamine sulf-chondroitinSA 500-250 mg capsule 1 cap PO DAILY cholecalciferol (vitamin D3) 2,000 unit capsule 1,000 unit PO QDAY Humira 10 mg/0.2 mL syringe kit 10 mg SC .Q2WEEK valacyclovir 1 gram Tablet 1,000 mg PO Q12H PRN (Reason: Cold Sores) albuterol sulfate 90 mcg/actuation Hfa Aerosol Inhaler 2 puff INHALATION Q6H PRN (Reason: Shortness Of Breath) Spiriva Respimat 2.5 mcg/actuation Mist 2 puff INHALATION DAILY calcium 600 mg Capsule 600 mg PO DAILY rosuvastatin [Crestor] 20 mg Tablet 20 mg PO QHS TaudArco 1 cap PO/SL DAILY Protonix 1 tab DAILY albuterol sulfate [Ventolin HFA] 90 mcg/actuation HFA aerosol inhaler 2 puff inhalation Q3H PRN (Reason: Wheezing) Qty: 1 0RF Rx Instructions: dispense with spacer azithromycin [azithromycin] 250 mg tablet 250 mg PO DAILY Qty: 4 0RF amoxicillin-pot clavulanate [amoxicillin-pot clavulanate] 875-125 mg tablet 875 mg PO Q12H Qty: 20 0RF [facility] Provider[facility] Referrals: Alex Munroe MD [Med Staff - Active Staff] - [facility] - Print Language: [place] Disposition Disposition: Home, Self Care Discharge Date/Time: 10/07/23 12:44
[2023-10-07 12:42] VITALS: BP 132/74; PULSE 65; RESP 18; TEMP 36.8; O2SAT 96
== END 2023-10-07 12:44 | disposition home or self-care (01) ==
PROVIDERS: Emergency Provider Emergency Medicine; Visit Provider Emergency Medicine
DX: S05.02XA Injury of conjunctiva and corneal abrasion without foreign body, left eye, initial encounter (principal); M06.9 Rheumatoid arthritis, unspecified; J44.9 Chronic obstructive pulmonary disease, unspecified; E78.00 Pure hypercholesterolemia, unspecified; W44.8XXA Other foreign body entering into or through a natural orifice, initial encounter; Y92.096 Garden or yard of other non-institutional residence as the place of occurrence of the external cause; Z87.891 Personal history of nicotine dependence; Z99.81 Dependence on supplemental oxygen
CPT/HCPCS: 99282

== ENCOUNTER 2023-10-10 13:07 | Outpatient (CLI) | payer MEDICARE, SELFPAY | END 2023-10-10 23:59 | disposition home or self-care (01) | LOC: LABSPEC 13:09 | PROVIDERS: Referring Provider Ophthalmology; Visit Provider Ophthalmology | DX: H16.042 Marginal corneal ulcer, left eye (principal) | CPT/HCPCS: 87070; 87075; 87101; 87205 ==

== ENCOUNTER 2024-04-24 16:39 | Emergency (ER) | payer MEDICARE, SELFPAY ==
[2024-04-24 16:41] VITALS: BP 150/83; PULSE 65; RESP 18; TEMP 36.2; O2SAT 92; BMI 29.6
== END 2024-04-24 19:08 | disposition left against medical advice (07) ==
LOC: ED 19:25
DX: Z53.21 Procedure and treatment not carried out due to patient leaving prior to being seen by health care provider (principal)